=== PATIENT | female | born 1945 | race Caucasian/White ===

== ENCOUNTER 2021-04-14 11:03 | Emergency (ER) | payer MEDICAID, MEDICARE ==
[~2021-04-14] VITALS: Ht 165 cm; Wt 56.0 kg
--- NOTE | 2021-04-14 11:46 | ED Fall/Injury ---
General Chief Complaint: Trauma-Non Activation Stated Complaint: FELL HIT HEAD, BACK PAIN Nursing Triage Note: ARRIVED VIA AMB WITH COMPLAINTS OF LOW BACK PAIN AFTER FALLING DOWN X12 STAIRS SUNDAY NIGHT. STATES SHE HIT HER HEAD ET NO LOC. PT IS NOT ON BLOOD THINNERS. NOTICABLE RIGHT RACOON EYE. Source: patient Exam Limitations: no limitations (SUMAYA BUTCHER APRN) History of Present Illness Date Seen by Provider: Apr 14, 2021 Time Seen by Provider: 11:50 Initial Comments To ER with reports that she fell down 12 stairs on 04/11/2021. No loss of consciousness but she does have some right periorbital bruising. Beginning yesterday she started vomiting but has had poor appetite and nausea for the past 3 days. No diarrhea no abdominal pain. She is not had much to drink. Complains of severe low back pain that does not radiate down either of her legs no loss of bowel or bladder control no numbness of her genitals. She has some bruising to the left forearm as well as pain to left forearm and left shoulder. Occurred: yesterday Severity: moderate Injuries/Pain Location: no injury Loss of Consciousness: no loss of consciousness Associated Symptoms (Fall): Denies Symptoms (SUMAYA BUTCHER APRN) Allergies and Home Medications Allergies Coded Allergies: No Known Drug Allergies (Unverified , 04/14/21) Patient Home Medication List Home Medication List Reviewed: Yes (SUMAYA BUTCHER APRN) Review of Systems Review of Systems Constitutional: see HPI Eyes: No Symptoms Reported Ears, Nose, Mouth, Throat: no symptoms reported Respiratory: no symptoms reported Cardiovascular: no symptoms reported Genitourinary: no symptoms reported Musculoskeletal: see HPI, back pain Skin: no symptoms reported Psychiatric/Neurological: No Symptoms Reported (SUMAYA BUTCHER APRN) Past Whiktms-Frhqpo-Faiwit Hx Patient Social History Tobacco Use?: No Substance use?: No Alcohol Use?: No (SUMAYA BUTCHER APRN) Immunizations Up To Date COVID19 Vaccine Hot Patcher: UNKNKOWN (SUMAYA BUTCHER APRN) Physical Exam Vital Signs Vital Signs - First Documented 04/14/21 11:16 Pulse 81 Resp 16 B/P (MAP) 180/88 (118) Pulse Ox 96 O2 Delivery Room Air (EVETTE REA MD) Vital Signs Capillary Refill : Less Than 3 Seconds (SUMAYA BUTCHER APRN) Height, Weight, BMI Height: '" Weight: lbs. oz. kg; 20.00 BMI Method: General Appearance: WD/WN, no apparent distress HEENT: PERRL/EOMI, normal ENT inspection Neck: non-tender, full range of motion Respiratory: normal breath sounds, no respiratory distress, no accessory muscle use Gastrointestinal: normal bowel sounds, non tender, soft Extremities: normal range of motion, non-tender Neurologic/Psychiatric: alert, normal mood/affect, oriented x 3 Skin: normal color, warm/dry, ecchymosis (Right facial periorbital ecchymosis no evidence of globe injury. Left forearm bruising.) (SUMAYA BUTCHER APRN) [place] Coma Score Best Eye Response: (4) Open Spontaneously Best Verbal Response: (5) Oriented Best Motor Response: (6) Obeys Commands Cedric Total: 15 (SUMAYA BUTCHER APRN) Progress/Results/Core Measures Results/Orders Lab Results Laboratory Tests Test 04/14/21 12:16 04/14/21 13:58 04/14/21 15:09 Range/Units White Blood Count 9.6 4.3-11.0 10^3/uL Red Blood Count 3.97 3.80-5.11 10^6/uL Hemoglobin 11.0 L 11.5-16.0 g/dL Hematocrit 36 35-52 % Mean Corpuscular Volume 90 80-99 fL Mean Corpuscular Hemoglobin 28 25-34 pg Mean Corpuscular Hemoglobin Concent 31 L 32-36 g/dL Red Cell Distribution Width 13.4 10.0-14.5 % Platelet Count 319 130-400 10^3/uL Mean Platelet Volume 9.3 9.0-12.2 fL Immature Granulocyte % (Auto) 0 % Neutrophils (%) (Auto) 82 H 42-75 % Lymphocytes (%) (Auto) 10 L 12-44 % Monocytes (%) (Auto) 8 0-12 % Eosinophils (%) (Auto) 0 0-10 % Basophils (%) (Auto) 1 0-10 % Neutrophils # (Auto) 7.9 H 1.8-7.8 10^3/uL Lymphocytes # (Auto) 0.9 L 1.0-4.0 10^3/uL Monocytes # (Auto) 0.8 0.0-1.0 10^3/uL Eosinophils # (Auto) 0.0 0.0-0.3 10^3/uL Basophils # (Auto) 0.1 0.0-0.1 10^3/uL Immature Granulocyte # (Auto) 0.0 0.0-0.1 10^3/uL Prothrombin Time 13.5 12.2-14.7 SEC INR Comment 1.0 0.8-1.4 Sodium Level 134 L 135-145 MMOL/L Potassium Level 4.7 3.6-5.0 MMOL/L Chloride Level 105 98-107 MMOL/L Carbon Dioxide Level 17 L 21-32 MMOL/L Anion Gap 12 5-14 MMOL/L Blood Urea Nitrogen 20 H 7-18 MG/DL Creatinine 0.87 0.60-1.30 MG/DL Estimat Glomerular Filtration Rate 69 BUN/Creatinine Ratio 23 Glucose Level 92 70-105 MG/DL Calcium Level 9.6 8.5-10.1 MG/DL Corrected Calcium 9.4 8.5-10.1 MG/DL Total Bilirubin 1.2 H 0.1-1.0 MG/DL Aspartate Amino Transf (AST/SGOT) 9 5-34 U/L Alanine Aminotransferase (ALT/SGPT) 14 0-55 U/L Alkaline Phosphatase 109 40-136 U/L Total Protein 8.0 6.4-8.2 GM/DL Albumin 4.2 3.2-4.5 GM/DL Influenza Type A Antigen NEGATIVE NEGATIVE Influenza Type B Antigen NEGATIVE NEGATIVE SARS-CoV-2 RNA (RT-PCR) Not Detected Negative Urine Color YELLOW Urine Clarity CLEAR Urine pH 5.5 5-9 Urine Specific [place] <=1.005 1.016-1.022 Urine Protein NEGATIVE NEGATIVE Urine Glucose (UA) NEGATIVE NEGATIVE Urine Ketones TRACE H NEGATIVE Urine Nitrite NEGATIVE NEGATIVE Urine Bilirubin NEGATIVE NEGATIVE Urine Urobilinogen 0.2 < = 1.0 MG/DL Urine Leukocyte Esterase NEGATIVE NEGATIVE Urine RBC (Auto) 1+ H NEGATIVE Urine RBC 2-5 H /HPF Urine WBC 0-2 /HPF Urine Squamous Epithelial Cells 2-5 /HPF Urine Crystals NONE /LPF Urine Bacteria TRACE /HPF Urine Casts PRESENT /LPF Urine Hyaline Casts RARE /LPF Urine Mucus NEGATIVE /LPF Urine Culture Indicated NO (EVETTE REA MD) Vital Signs/I&O 2/3/22 2/3/22 11:16 15:50 Pulse 81 Resp 16 16 B/P (MAP) 180/88 (118) 160/79 Pulse Ox 96 98 O2 Delivery Room Air Room Air (EVETTE REA MD) Blood Pressure Mean: 118 Departure Communication (Admissions) 1401-Spoke with Dr. Hutton from neurosurgery at [facility] in [place]. Recommends transferring the patient there for MRI and neurosurgical evaluation. I spoke with Dr. Quintero from the emergency room agrees to accept the patient would like a Covid and flu swab before transport. Patient remains hemodynamically stable alert and oriented GCS 15. NAME: DIAZ CHEW [facility] REC#: [id number] PT STATUS: REG ER : 1945 PHYSICIAN: SUMAYA BUTCHER APRN ADMIT DATE: 04/14/21/ER Draft Date of Exam:04/14/21 SHOULDER, LEFT, 3 VIEWS Indication: Fall with left shoulder pain. TIME OF EXAM: 1:06 PM 3 views of the left shoulder were obtained. The glenohumeral and acromioclavicular alignment are normal. Acromial humeral space is normal. No fracture or dislocation is seen. IMPRESSION: No acute bony abnormality is detected. Dictated on workstation # [id number] Dict: 04/14/21 1320 Trans: 04/14/21 1322 [facility] [place] [id number] Interpreted by: DAHIANA CAI MD Electronically signed by: Family Conversation NAME: DIAZ CHEW [facility] REC#: [id number] PT STATUS: REG ER : 1945 PHYSICIAN: SUMAYA BUTCHER APRN ADMIT DATE: 04/14/21/ER Draft Date of Exam:04/14/21 ABDOMEN/KUB 1VIEW EXAM: ABDOMEN/KUB 1VIEW INDICATION: Abnormality seen on hot mill shearer CT. COMPARISON: CT lumbar spine 04/14/2021. FINDINGS: Gaseously distended colon including a loop of colon within a large hiatal hernia. Nonspecific small bowel gas pattern. Lung bases are unremarkable. No free intraperitoneal air is seen. No radiopaque foreign bodies. IMPRESSION: Gaseously distended colon including a large loop within a hiatal hernia. Nonspecific small bowel gas pattern. Dictated on workstation # [id number] Dict: 04/14/21 1319 Trans: 04/14/21 1323 [place] [id number] Interpreted by: YUN CARRINGTON MD Electronically signed by: NAME: DIAZ CHEW [facility] REC#: [id number] PT STATUS: REG ER : 1945 PHYSICIAN: SUMAYA BUTCHER APRN ADMIT DATE: 04/14/21/ER Draft Date of Exam:04/14/21 CT LUMBAR SPINE WO PROCEDURE: CT lumbar spine without contrast. TECHNIQUE: Multiple contiguous axial images were obtained through the lumbar spine without the use of intravenous contrast. Sagittal and coronal reformations were then performed. Auto Exposure Controls were utilized during the CT exam to meet ALARA standards for radiation dose reduction. INDICATION: Back pain after injury from fall COMPARISON: None available. FINDINGS: Osseous demineralization present likely due to osteoporosis. There is an acute 2 column fracture involving superior endplate of T12 which has disruption of the posterior wall and approximately 3 mm of retropulsion of the superior aspect of the posterior wall. This causes mild spinal stenosis. Approximately 20% height loss is present in the T12 vertebral body. The lumbar vertebral bodies are intact. No sacral insufficiency fracture. No high-grade central canal stenosis. No retroperitoneal hematoma. Hiatal hernia is noted but incompletely visualized. IMPRESSION: Acute burst (2 column) fracture of T12 has the posterior wall fragment retropulsed approximately 3 mm resulting in mild spinal stenosis. Dictated on workstation # [id number] Dict: 04/14/21 1306 Trans: 04/14/21 1313 [place] [id number] Interpreted by: EMILIE VAZQUEZ MD Electronically signed by: NAME: DIAZ CHEW [facility] REC#: [id number] PT STATUS: REG ER : 1945 PHYSICIAN: SUMAYA BUTCHER APRN ADMIT DATE: 04/14/21/ER Draft Date of Exam:04/14/21 CT HEAD/CERVICAL SPINE WO PROCEDURE: CT head and CT cervical spine without contrast. TECHNIQUE: Multiple contiguous axial images were obtained through the brain and cervical spine without the use of intravenous contrast. Sagittal and coronal reformations through the cervical spine were then performed. Auto Exposure Controls were utilized during the CT exam to meet ALARA standards for radiation dose reduction. INDICATION: Fall. No prior studies are available for comparison. CT HEAD: There appears to be soft tissue swelling in the right frontal scalp. The ventricles and sulci are within normal limits. No sulcal effacement or midline shift is identified. No acute intra-axial or extra-axial hemorrhage is detected. Cisterns are patent. Visualized paranasal sinuses are clear. IMPRESSION: Right frontal scalp swelling. No acute intracranial process is detected. CT CERVICAL SPINE: Curvature of the cervical spine is normal. There is minimal retrolisthesis of C3 on C4 and C5 on C6. No fractures identified. The prevertebral tissues are within normal limits. Odontoid is intact. There is some generalized degenerative disc and facet disease. IMPRESSION: No acute bony abnormality is detected. Dictated on workstation # [id number] Dict: 04/14/21 1304 Trans: 04/14/21 1309 [facility] [place] [phone] Interpreted by: DAHIANA CAI MD Electronically signed by: (SUMAYA BUTCHER APRN) Impression Primary Impression: T12 burst fracture Additional Impression: Colon distention Disposition: XFER SHT-TRM HOSP Condition: Stable Transfer Transfer Reason: Exceeds level of care Time Spoke to Accepting Phy: 14:22 (SUMAYA BUTCHER APRN) Departure-Patient Inst. [place] [facility] [place] Primary Care Physician ELEANOR ALDRICH DO (Family) Primary Care Physician ATTENDING PHYSICIAN NOTE: I was physically present as attending physician in the emergency department during the care of this patient. I discussed this case in brief with Sumaya Butcher NP and reviewed x-rays with him. I agree with transfer to higher level of care. Dr. Greer as trauma surgeon on-call was notified of transfer and agrees. I was otherwise not directly involved in the decision making or delivery of care for this patient. (EVETTE REA MD) SUMAYA BUTCHER APRN Apr 14, 2021 11:46 EVETTE REA MD Apr 16, 2021 06:41
[2021-04-14 12:25] LABS: BASOPHILS # (AUTO) 0.1 10^3/uL (0.0-0.1); BASOPHILS % (AUTO) 1 % (0-10); EOSINOPHILS % (AUTO) 0 % (0-10); HEMATOCRIT 36 % (35-52); LYMPHOCYTES # (AUTO) 0.9 10^3/uL (1.0-4.0); LYMPHOCYTES % (AUTO) 10 % (12-44); MEAN CORPUSCULAR HEMOGLOBIN 28 pg (25-34); MEAN CORPUSCULAR HGB CONC 31 g/dL (32-36); MEAN CORPUSCULAR VOLUME 90 fL (80-99); MEAN PLATELET VOLUME 9.3 fL (9.0-12.2); MONOCYTES # (AUTO) 0.8 10^3/uL (0.0-1.0); MONOCYTES % (AUTO) 8 % (0-12); NEUTROPHILS # (AUTO) 7.9 10^3/uL (1.8-7.8); NEUTROPHILS % (AUTO) 82 % (42-75); PLATELET COUNT 319 10^3/uL (130-400); WHITE BLOOD COUNT 9.6 10^3/uL (4.3-11.0)
[2021-04-14] MEDS ORDERED: ONDANSETRON 4 MG/2 ML (SDV) Z0FRAN IVP ONE (12:30)
[2021-04-14] MEDS ORDERED: fentaNYL INJ 100 MCG/2 ML AMP IVP ONE ×3 (12:30→15:45)
[2021-04-14] MEDS ORDERED: LACTATED RINGERS 1,000 ML IV SCH (12:30)
[2021-04-14 12:34] LABS: ALBUMIN 4.2 GM/DL (3.2-4.5); POTASSIUM 4.7 MMOL/L (3.6-5.0)
[2021-04-14 12:35] LABS: CALCIUM 9.6 MG/DL (8.5-10.1); PROTHROMBIN TIME PATIENT 13.5 SEC (12.2-14.7)
[2021-04-14 12:38] LABS: BILIRUBIN,TOTAL 1.2 MG/DL (0.1-1.0)
[2021-04-14 12:40] LABS: CREATININE SERUM 0.87 MG/DL (0.60-1.30)
--- NOTE | 2021-04-14 13:10 | Diagnostic Imaging Report ---
PROCEDURE: CT head and CT cervical spine without contrast. TECHNIQUE: Multiple contiguous axial images were obtained through the brain and cervical spine without the use of intravenous contrast. Sagittal and coronal reformations through the cervical spine were then performed. Auto Exposure Controls were utilized during the CT exam to meet ALARA standards for radiation dose reduction. INDICATION: Fall. No prior studies are available for comparison. CT HEAD: There appears to be soft tissue swelling in the right frontal scalp. The ventricles and sulci are within normal limits. No sulcal effacement or midline shift is identified. No acute intra-axial or extra-axial hemorrhage is detected. Cisterns are patent. Visualized paranasal sinuses are clear. IMPRESSION: Right frontal scalp swelling. No acute intracranial process is detected. CT CERVICAL SPINE: Curvature of the cervical spine is normal. There is minimal retrolisthesis of C3 on C4 and C5 on C6. No fractures identified. The prevertebral tissues are within normal limits. Odontoid is intact. There is some generalized degenerative disc and facet disease. IMPRESSION: No acute bony abnormality is detected. Dictated by: Dictated on workstation # [id number]
--- NOTE | 2021-04-14 13:13 | Diagnostic Imaging Report ---
PROCEDURE: CT lumbar spine without contrast. TECHNIQUE: Multiple contiguous axial images were obtained through the lumbar spine without the use of intravenous contrast. Sagittal and coronal reformations were then performed. Auto Exposure Controls were utilized during the CT exam to meet ALARA standards for radiation dose reduction. INDICATION: Back pain after injury from fall COMPARISON: None available. FINDINGS: Osseous demineralization present likely due to osteoporosis. There is an acute 2 column fracture involving superior endplate of T12 which has disruption of the posterior wall and approximately 3 mm of retropulsion of the superior aspect of the posterior wall. This causes mild spinal stenosis. Approximately 20% height loss is present in the T12 vertebral body. The lumbar vertebral bodies are intact. No sacral insufficiency fracture. No high-grade central canal stenosis. No retroperitoneal hematoma. Hiatal hernia is noted but incompletely visualized. IMPRESSION: Acute burst (2 column) fracture of T12 has the posterior wall fragment retropulsed approximately 3 mm resulting in mild spinal stenosis. Dictated by: Dictated on workstation # [id number]
--- NOTE | 2021-04-14 13:22 | Diagnostic Imaging Report ---
Indication: Fall with left shoulder pain. TIME OF EXAM: 1:06 PM 3 views of the left shoulder were obtained. The glenohumeral and acromioclavicular alignment are normal. Acromial humeral space is normal. No fracture or dislocation is seen. IMPRESSION: No acute bony abnormality is detected. Dictated by: Dictated on workstation # [id number]
--- NOTE | 2021-04-14 13:23 | Diagnostic Imaging Report ---
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 COMPARISON: CT lumbar spine 04/14/2021. FINDINGS: Gaseously distended colon including a loop of colon within a large hiatal hernia. Nonspecific small bowel gas pattern. Lung bases are unremarkable. No free intraperitoneal air is seen. No radiopaque foreign bodies. IMPRESSION: Gaseously distended colon including a large loop within a hiatal hernia. Nonspecific small bowel gas pattern. Dictated by: Dictated on workstation # [id number]
--- NOTE | 2021-04-14 13:24 | Diagnostic Imaging Report ---
INDICATION: Fall and left arm pain. TIME OF EXAM: 12:59 PM 2 views left forearm were obtained. Alignment at the elbow and wrist is normal. The radius and ulna appear to be intact. No fractures are seen. IMPRESSION: No acute bony abnormality is detected. Dictated by: Dictated on workstation # [id number]
[2021-04-14] MEDS ORDERED: IOHEXOL 350 MG/ML 100 ML (OMNIPAQUE 350) VIAL IV ONE (13:30)
[2021-04-14] MEDS ORDERED: NS 100 ML (IVPB) BAG IV ONE (13:30)
[2021-04-14] MEDS ORDERED: CATHETER FLUSH 10 ML SYR IV PRN (13:30)
[2021-04-14] MEDS ORDERED: HOLD METFORMIN - RECEIVED CONTRAST 20 ML VIAL IV SCH (13:30)
--- NOTE | 2021-04-14 14:15 | Diagnostic Imaging Report ---
PROCEDURE: CT chest, abdomen, and pelvis with contrast. TECHNIQUE: Multiple contiguous axial images were obtained through the chest, abdomen, and pelvis after the administration of intravenous contrast. Auto Exposure Controls were utilized during the CT exam to meet ALARA standards for radiation dose reduction. INDICATION: Hiatal hernia and back pain CT CHEST: There is a large hiatal hernia containing almost the entirety of the stomach as well as segment of dilated gas and stool containing transverse colon. There is mild subjacent atelectasis in the lung bases. Otherwise, the lungs are clear without significant pleural or pericardial fluid. There is no pneumothorax or pneumomediastinum. Great vessels in the mediastinum are of normal caliber with densely calcified coronary artery calcification. CT ABDOMEN PELVIS: No focal hepatic, gallbladder, pancreatic, adrenal gland or splenic lesions identified. Kidneys are also unremarkable. Stomach and portions of transverse colon are above the diaphragm in the posterior mediastinum. There is large amount of stool in the proximal colon with general decompression of the distal colon beyond distal transverse segment. Unopacified bladder is unremarkable. There is no evidence of organized fluid collection or focal inflammation. There is mild diffuse thoracic and lumbar spondylosis. Note is made of mild compression fracture deformity at the T12 level. IMPRESSION: Giant hiatal hernia containing stomach and dilated transverse colon. There does appear to be significant distention of colon proximal to the herniation and a component of obstruction possibly secondary to colonic volvulus is not fully excluded. Colonoscopy or contrast enema may be of use for further assessment. Otherwise no acute abnormality is seen in the chest apart from mild compression fracture at T12. Correlation to possible pain at this region would be useful. MRI could be considered to exclude acute nature. Dictated by: Dictated on workstation # [id number]
[2021-04-14 15:16] LABS: BILIRUBIN,URINE NEGATIVE (NEGATIVE); CLARITY,URINE CLEAR; COLOR,URINE YELLOW; GLUCOSE, URINE (UA) NEGATIVE (NEGATIVE); KETONES,URINE TRACE (NEGATIVE); LEUKOCYTE ESTERASE ,URINE NEGATIVE (NEGATIVE); NITRITE,URINE NEGATIVE (NEGATIVE); PH,URINE 5.5 (5-9); PROTEIN,URINE NEGATIVE (NEGATIVE)
[2021-04-14 15:24] LABS: BACTERIA,URINE TRACE /HPF; HYALINE CASTS, URINE RARE /LPF; WBC,URINE 0-2 /HPF
[2021-04-14] MEDS ORDERED: fentaNYL INJ 100 MCG/2 ML AMP ONE (15:45)
[2021-04-14 15:50] VITALS: BP 160/79
== END 2021-04-14 15:50 | disposition short-term general hospital (02) ==
LOC: EDUNIT# 11:03 → ER 11:05
DX: S22.081A Stable burst fracture of T11-T12 vertebra, initial encounter for closed fracture (principal); S50.12XA Contusion of left forearm, initial encounter; S05.11XA Contusion of eyeball and orbital tissues, right eye, initial encounter; K63.89 Other specified diseases of intestine; Z20.822 Contact with and (suspected) exposure to COVID-19; W10.8XXA Fall (on) (from) other stairs and steps, initial encounter
CPT/HCPCS: 36415; 70450; 71260; 72125; 72131; 73030; 73090; 74018; 74177; 80053; 81000; 85025; 85610; 87636; 87804

== ENCOUNTER → 2021-07-15 | Outpatient (CLI) | payer MEDICARE ==
[~2021-07-15] MED LIST: LIDOCAINE 1% INJ 20 ML VIAL INJ ONE
--- NOTE | 2021-07-15 16:22 | Diagnostic Imaging Report ---
INDICATION: Right breast density. Patient presents for stereotactic biopsy. COMPARISON: Correlation is made with recent study from 07/11/2021. EXAMINATION: Exaggerated CC as well as repeat MLO and lateral medial views of the right breast were obtained. FINDINGS: There is a density in the outer right breast posterior depth. This is near the chest wall approximately 10 cm from the nipple. Attempts were made to position the right breast lateral medial in order for patient to undergo stereotactic biopsy, however, this was unsuccessful. The lesion could not be confidently identified for targeting. Therefore, procedure was canceled. IMPRESSION: Right breast lesion could not be successfully seen and targeted for stereotactic biopsy. Patient should proceed with breast MRI with potential MRI-guided right breast biopsy. Dictated by: Dictated on workstation # [id number]
== END ==
LOC: RAD 10:07
PROVIDERS: ATTEND Pediatrics
DX: R92.2 Inconclusive mammogram (principal)
CPT/HCPCS: 77065; G0279

== ENCOUNTER → 2022-03-28 | Outpatient (CLI) | payer MEDICARE ==
--- NOTE | 2022-03-28 13:08 | Diagnostic Imaging Report ---
INDICATION: Postmenopausal screening for osteoporosis. COMPARISON: None. FINDINGS: AP Spine L1-L4: [BMD (g/cm2): 0.956] [T-Score: -2.0] [Z-Score: 0.2] [BMD Previous: NA] [BMD % Change: NA] LT Hip Neck: [BMD (g/cm2): 0.659] [T-Score: -2.7] [Z-Score: -0.4] LT Hip Total: [BMD (g/cm2):0.620] [T-Score:-3.1] [Z-Score: -0.9] [BMD Previous: NA] [BMD % Change: NA] RT Hip Neck: [BMD (g/cm2):0.653] [T-Score:-2.8] [Z-Score:-0.5] RT Hip Total: [BMD (g/cm2):0.595] [T-score:-3.3] [Z-Score:-1.1] [BMD Previous:NA] [BMD % Change:NA] *Indicates significant change from prior examination based on 95% confidence level. World Health Organization criteria for BMD interpretation classify patients as Normal (T-score at or above -1.0), Osteopenic (T-score between -1.0 and -2.5) or Osteoporotic (T-score at or below -2.5). LIMITATIONS AND MODIFICATION: None. FRACTURE RISK (FRAX SCORE): The ten year probability of (%): Major Osteoporotic Fracture: [25.2] Hip Fracture: [9.5] IMPRESSION: 1. Osteoporosis. 2. Baseline examination. 3. See below National Osteoporosis Foundation guidelines on when to potentially initiate pharmacologic therapy. Based on the National Osteoporosis Foundation Guidelines, pharmacologic treatment should be initiated in any of the following, unless clinical conditions suggest otherwise: * Any patient with prior fragility fracture of the hip or vertebrae. A spine fracture indicates 5X risk for subsequent spine fracture and 2X risk for subsequent hip fracture. * Osteoporosis (T-score <-2.5). * Postmenopausal women and men age 50 and older with low bone mass/osteopenia (T-score between -1.0 and -2.5) by DXA and 10-year major osteoporotic fracture greater than 20% or a 10-year probability of hip fracture greater than 3%. These fracture risks are supplied above in the FRAX score, if applicable. * Clinician judgement and/or patient preferences may indicate treatment for people with 10-year fracture probabilities above or below these levels. Dictated by: Dictated on workstation # [id number]
== END ==
LOC: RAD 11:29
PROVIDERS: ATTEND Pediatrics
DX: Z13.820 Encounter for screening for osteoporosis (principal); M81.0 Age-related osteoporosis without current pathological fracture; Z78.0 Asymptomatic menopausal state
CPT/HCPCS: 77080

== ENCOUNTER 2022-05-17 13:03 | Observation (INO) | payer MEDICARE ==
[~2022-05-17] VITALS: Ht 165.1 cm; Wt 52.2 kg
[2022-05-17] MEDS ORDERED: ASPIRIN 81 MG CHEW (CHILDREN'S ASA) PO ONE (13:15)
[2022-05-17] MEDS ORDERED: NITROGLYCERIN 0.4 MG SL TABS BTL 25'S SL PRN ×2 (13:15→16:00)
--- NOTE | 2022-05-17 13:19 | ED Chest Pain ---
General Chief Complaint: Chest Pain Stated Complaint: CHEST PAINS Source: patient Exam Limitations: no limitations History of Present Illness Date Seen by Provider: May 17, 2022 Time Seen by Provider: 13:17 Initial Comments Patient is a 77-year-old female with a history of hypertension, high cholesterol who presents to ED with left-sided chest pain. Pain started 45 minutes to 1 hour ago. She was laying at home. Sharp stabbing pain overlying her left breast. No radiation. Worse with deep inspiration. Rates pain at a 10. Denies history similar pain. She has some mild shortness of breath without nausea, vomiting, diarrhea, cough, headache or dizziness. No known cardiac history. Strong family cardiac history. Denies history of diabetes, smoking, history of coronary artery disease, recent travels or surgeries, blood disorders, leg pain, recent travels or surgeries. She also denies fever, abdominal pain or urinary symptoms. Patient took 1 baby aspirin right before arrival Allergies and Home Medications Allergies Coded Allergies: No Known Drug Allergies (Unverified , 04/14/21) Patient Home Medication List Home Medication List Reviewed: Yes Review of Systems Review of Systems Constitutional: No chills, No diaphoresis, No malaise, No weakness EENTM: No Double Vision Respiratory: Denies Cough; Shortness of Air; Denies SOA at Rest Cardiovascular: Chest Pain Gastrointestinal: Denies Abdominal Pain, Denies Diarrhea, Denies Nausea, Denies Vomiting Genitourinary: Denies Burning, Denies Drainage, Denies Frequency Musculoskeletal: No back pain, No joint pain Skin: No change in color, No change in hair/nails All Other Systems Reviewed Negative Unless Noted: Yes Past Lhmenkw-Ocvudm-Gbmkty Hx Patient Social History Tobacco Use?: No Use of E-Cig and/or Vaping dev: No Alcohol Use?: No Pt feels they are or have been: No Immunizations Up To Date Influenza Vaccine Up-to-Date: Yes; Up-to-Date First/Initial COVID19 Vaccinat: 11/30 Second COVID19 Vaccination Steve: X3 Third COVID19 Vaccination Date: X3 Past Medical History Surgery/Hospitalization HX: HTN. HLD Physical Exam Vital Signs Vital Signs - First Documented 05/17/22 13:07 Temp 36.4 Pulse 85 Resp 18 B/P (MAP) 183/94 (123) Capillary Refill : Height, Weight, BMI Height: '" Weight: lbs. oz. kg; 20.00 BMI Method: General Appearance: No Apparent Distress, WD/WN HEENT: PERRL/EOMI, TMs Normal, Normal ENT Inspection, Pharynx Normal Neck: Full Range of Motion, Normal Inspection, Non Tender, Supple Respiratory: Chest Non Tender, Lungs Clear, Normal Breath Sounds, No Accessory Muscle Use, No Respiratory Distress Cardiovascular: Regular Rate, Rhythm, No Edema, No Gallop Gastrointestinal: Normal Bowel Sounds, No Organomegaly, No Pulsatile Mass, Non Tender Neurologic/Psychiatric: Alert, Oriented x3, No Motor/Sensory Deficits, Normal Mood/Affect Skin: Normal Color Progress/Results/Core Measures Results/Orders Lab Results Laboratory Tests Test 05/17/22 13:16 Range/Units White Blood Count 8.1 4.3-11.0 10^3/uL Red Blood Count 3.96 3.80-5.11 10^6/uL Hemoglobin 10.6 L 11.5-16.0 g/dL Hematocrit 33 L 35-52 % Mean Corpuscular Volume 84 80-99 fL Mean Corpuscular Hemoglobin 27 25-34 pg Mean Corpuscular Hemoglobin Concent 32 32-36 g/dL Red Cell Distribution Width 15.2 H 10.0-14.5 % Platelet Count 366 130-400 10^3/uL Mean Platelet Volume 8.9 L 9.0-12.2 fL Immature Granulocyte % (Auto) 0 % Neutrophils (%) (Auto) 70 42-75 % Lymphocytes (%) (Auto) 19 12-44 % Monocytes (%) (Auto) 10 0-12 % Eosinophils (%) (Auto) 1 0-10 % Basophils (%) (Auto) 1 0-10 % Neutrophils # (Auto) 5.6 1.8-7.8 10^3/uL Lymphocytes # (Auto) 1.6 1.0-4.0 10^3/uL Monocytes # (Auto) 0.8 0.0-1.0 10^3/uL Eosinophils # (Auto) 0.1 0.0-0.3 10^3/uL Basophils # (Auto) 0.1 0.0-0.1 10^3/uL Immature Granulocyte # (Auto) 0.0 0.0-0.1 10^3/uL Prothrombin Time 13.7 12.2-14.7 SEC INR Comment 1.0 0.8-1.4 Activated Partial Thromboplast Time 35 24-35 SEC D-Dimer <= 0.27 0.00-0.49 UG/ML Sodium Level 140 135-145 MMOL/L Potassium Level 3.9 3.6-5.0 MMOL/L Chloride Level 112 H 98-107 MMOL/L Carbon Dioxide Level 21 21-32 MMOL/L Anion Gap 7 5-14 MMOL/L Blood Urea Nitrogen 23 H 7-18 MG/DL Creatinine 1.03 0.60-1.30 MG/DL Estimat Glomerular Filtration Rate 56 BUN/Creatinine Ratio 22 Glucose Level 63 L 70-105 MG/DL Calcium Level 9.2 8.5-10.1 MG/DL Corrected Calcium 9.2 8.5-10.1 MG/DL Magnesium Level 1.7 1.6-2.4 MG/DL Total Bilirubin 0.4 0.1-1.0 MG/DL Aspartate Amino Transf (AST/SGOT) 10 5-34 U/L Alanine Aminotransferase (ALT/SGPT) 13 0-55 U/L Alkaline Phosphatase 98 40-136 U/L Myoglobin 51.2 10.0-92.0 NG/ML Troponin I < 0.028 <0.028 NG/ML B-Type Natriuretic Peptide 114.9 H <100.0 PG/ML Total Protein 7.9 6.4-8.2 GM/DL Albumin 4.0 3.2-4.5 GM/DL Lipase 50 8-78 U/L My Orders Orders - LUPE BECK PA Ekg Tracing (05/17/22 13:06) Cbc With Automated Diff (05/17/22 13:15) Magnesium (05/17/22 13:15) Chest 1 View, Ap/Pa Only (05/17/22 13:15) Ekg Tracing (05/17/22 13:15) Comprehensive Metabolic Panel (05/17/22 13:15) Myoglobin Serum (05/17/22 13:15) Protime With Inr (05/17/22 13:15) Partial Thromboplastin Time (05/17/22 13:15) O2 (05/17/22 13:15) Monitor-Rhythm Ecg Trace Only (05/17/22 13:15) Ed Iv/Invasive Line Start (05/17/22 13:15) Lipase (05/17/22 13:15) Bnp [place] (05/17/22 13:15) Troponin I Michael (05/17/22 13:15) Nitroglycerin 0.4 Mg Btl 25's (Nitrostat (05/17/22 13:15) Aspirin Chewable Tablet (Baby Aspirin Ch (05/17/22 13:15) Fibrin Degradation Products (05/17/22 13:15) Morphine Injection (Morphine Injection (05/17/22 13:47) Metoprolol Succinate (Xl) Tab (Toprol Xl (05/17/22 14:45) Pantoprazole Injection (Protonix Injecti (05/17/22 14:45) Medications Given in ED Current Medications Medications Dose Ordered Sig/Jarrod Route Start Time Stop Time Status Last Admin Dose Admin Aspirin 243 mg ONCE ONCE PO 05/17/22 13:15 05/17/22 13:17 DC 05/17/22 13:20 243 MG Nitroglycerin 0.4 mg UD PRN SL 05/17/22 13:15 05/17/22 13:20 0.4 MG Vital Signs/I&O 05/17/22 13:07 Temp 36.4 Pulse 85 Resp 18 B/P (MAP) 183/94 (123) Comment Sinus rhythm with very minimal ST depression lateral leads, minimal ST elevation inferior leads, 81 bpm, QRS duration 85 MS, QTc 422 MS. Departure Communication (Admissions) Time/Spoke to Admitting Phy: 14:35 Dr. Garcia cardiology recommends metoprolol succinate 50 mg p.o. daily, aspirin 81 mg daily, morphine 2 mg every 2-4 hours as needed for pain, Protonix 40 mg daily, cardiac diet. Communication (PCP) Reviewed previous ER visits, outpatient visits, lab test and imaging. Patient has had no previous cardiac work-up. Initial EKG showed sinus rhythm at 81 bpm with very minimal ST elevation in inferior leads. Patient took 81 mg aspirin at home. She was given 3 baby aspirin to equal a full aspirin here. She was initially given sublingual nitro 0.4 mg and a dose of 2 mg of morphine with near resolution of her pain. Differential diagnosis of acute coronary syndrome, pericarditis, gastritis, GERD, pneumonia, CHF. Heart score 4. Due to her current presentation cardiac work-up was ordered CBC, CMP, lipase, magnesium, troponin, BNP, D-dimer, and coags, chest x-ray Patient CBC was unremarkable, CMP was otherwise unremarkable besides a blood sugar 63. BNP 114 likely unremarkable. Normal troponin. Initial review of chest x-ray shows large hiatal hernia which she is aware of but otherwise unremarkable without evidence of pleural effusion, pneumonia. Cardiology Dr. Garcia was consulted. Recommends 81 mg aspirin daily, metoprolol succinate 50 mg p.o., cardiac diet, morphine 2 mg as needed for pain, Protonix 40 mg daily, patient is not n.p.o. after midnight. Patient was discussed with Dr. Montiel hospitalist regarding patient. Excepted for cardiac work-up, serial troponins. She will provide acute orders. Patient agrees for admission at this time. No previous cardiac work-up to compare to Impression Primary Impression: Chest pain Disposition: ADMITTED INPATIENT Condition: Stable Admissions Decision to Admit Reason: Admit from ER (General) Decision to Admit/Date: May 17, 2022 Time/Decision to Admit Time: 14:43 Departure-Patient Inst. Referrals: [facility] (PCP) Primary Care Physician ELEANOR ALDRICH DO (Family) Primary Care Physician LUPE BECK May 17, 2022 13:19
[2022-05-17 13:23] LABS: BASOPHILS # (AUTO) 0.1 10^3/uL (0.0-0.1); BASOPHILS % (AUTO) 1 % (0-10); EOSINOPHILS # (AUTO) 0.1 10^3/uL (0.0-0.3); EOSINOPHILS % (AUTO) 1 % (0-10); HEMATOCRIT 33 % (35-52); HEMOGLOBIN 10.6 g/dL (11.5-16.0); LYMPHOCYTES # (AUTO) 1.6 10^3/uL (1.0-4.0); LYMPHOCYTES % (AUTO) 19 % (12-44); MEAN CORPUSCULAR HEMOGLOBIN 27 pg (25-34); MEAN CORPUSCULAR HGB CONC 32 g/dL (32-36); MEAN CORPUSCULAR VOLUME 84 fL (80-99); MEAN PLATELET VOLUME 8.9 fL (9.0-12.2); MONOCYTES # (AUTO) 0.8 10^3/uL (0.0-1.0); MONOCYTES % (AUTO) 10 % (0-12); NEUTROPHILS # (AUTO) 5.6 10^3/uL (1.8-7.8); NEUTROPHILS % (AUTO) 70 % (42-75); PLATELET COUNT 366 10^3/uL (130-400); WHITE BLOOD COUNT 8.1 10^3/uL (4.3-11.0)
[2022-05-17 13:35] LABS: POTASSIUM 3.9 MMOL/L (3.6-5.0)
[2022-05-17 13:36] LABS: CALCIUM 9.2 MG/DL (8.5-10.1); PROTHROMBIN TIME PATIENT 13.7 SEC (12.2-14.7)
[2022-05-17 13:38] LABS: TOTAL PROTEIN 7.9 GM/DL (6.4-8.2)
[2022-05-17 13:39] LABS: BILIRUBIN,TOTAL 0.4 MG/DL (0.1-1.0)
[2022-05-17 13:41] LABS: CREATININE SERUM 1.03 MG/DL (0.60-1.30)
[2022-05-17 13:44] LABS: MAGNESIUM 1.7 MG/DL (1.6-2.4)
[2022-05-17] MEDS ORDERED: morphine INJ 10 MG/ML 1ML (SYR OR VIAL) IV STA (13:47)
--- NOTE | 2022-05-17 14:14 | Diagnostic Imaging Report ---
INDICATION: Chest pain Frontal chest obtained at 1:36 p.m. There is no prior study for comparison. Heart is normal in size. There is a large hiatal hernia. There is no focal infiltrate or pneumothorax or pleural fluid. IMPRESSION: Large hiatal hernia. No focal infiltrate or pneumothorax or pleural fluid. Dictated by: Dictated on workstation # [id number]
[2022-05-17] MEDS ORDERED: meTOproloL SUCCINATE 50 MG (TOPROL XL) TAB PO SCH (14:45)
[2022-05-17] MEDS ORDERED: PANTOPRAZOLE 40 MG (PROTONIX) VIAL IV ONE (14:45)
--- NOTE | 2022-05-17 15:27 | Consultation-Cardiology ---
HPI-Cardiology Cardiology Consultation: Date of Consultation 05/17/22 Time Seen by a Provider: 14:45 Date of Admission 05-17-22 Attending Physician [facility] Admitting Physician Admitting Physician: Attending Physician: Consulting Physician KAMINI DANIELS HPI: Chief Complaint: Chest pain Ms. Chew is a 77 yr old female whom I have seen in the ED. She reports she is under increased stress d/t her son being critically ill and in our ICU at this time. She reports she laid down to take a nap and woke up with localized sharp stabbing pain under her left breast. She reports it was constant and significantly worse with deep breathing. She reports some increase the discomfort with movement. She states her family member drove her to the ED and by the time she arrived at the ED the pain had improved, but had not resolved. She currently reports she continues to have mild chest discomfort at rest. During her assessment when auscultating breath sounds she did report discomfort with deep breathing. She reports h/o breast cancer with left sided mastectomy and breast reconstruction over 10 yrs ago. She reports occ palpitations, which she describes as a skipped beat lasting only a few seconds. She reports if she turns her head to quickly she has dizziness, but reports that has been present since her back surgery last year. No c/o syncope or near syncope. No c/o LE swelling. No c/o n/v/d. No c/o fever or chills. Review of Systems-Cardiology Review of Systems Constitutional: As described under HPI; No chills, No fever; tiredness Eyes: No vision change Ears/Nose/Throat: No epistaxis, No recent hearing loss Respiratory: As described under HPI Cardiovascular: As described under HPI Gastrointestinal: No constipation, No diarrhea, No nausea, No vomiting Genitourinary: No dysuria, No hematuria Musculoskeletal: back pain Skin: No rash on exposed areas, No ulcerations on exposed areas Psychiatric/Neurological: No anxiety, No depression, No seizure, No focal weakness, No syncope Hematologic: No bleeding abnormalities All Other Systems Reviewed Negative Unless Noted: Yes YCG-Brtwkf-Kgocxd Hx Patient Social History Have you traveled recently?: No Alcohol Use?: No Pt feels they are or have been: No Past Medical History PMH As described under Assessment. Family Medical History Family Medical History: Cecilio reports her father passed from an [place] at age 45. She reports her mother and father both had heart disease. Allergies and Home Medications Allergies Coded Allergies: No Known Drug Allergies (Unverified , 04/14/21) Physical Exam-Cardiology Physical Exam Vital Signs/I&O 05/18/22 05/18/22 05/18/22 05/18/22 00:22 01:00 03:49 07:00 Temp 36.6 Pulse 73 60 66 70 Resp 20 18 B/P (MAP) 157/79 (105) 142/77 (98) Pulse Ox 100 97 O2 Delivery Room Air Room Air 05/18/22 08:00 Pulse Ox 97 O2 Delivery Room Air 05/18/22 00:00 Intake Total 550 ml Balance 550 ml Capillary Refill : Constitutional: AAO x 3, well-developed, other (thin) HEENT: PERRL, hearing is well preserved, oral hygience is good Neck: No carotid bruit; carotid pulses are 2 + bilaterally Respiratory: No accessory muscle use, No respiratory distress; chest expansion is symmetric, chest is bilaterally symmetric, lungs clear to auscultation Cardiovascular: regular rate-rhythm; No JVD; S1 and S2 Gastrointestinal: No tender; soft; No guarding; audible bowel sounds Extremities: no lower extremity edema bilateral Neurologic/Psychiatric: grossly intact (moves all extremities) Skin: No rash on exposed areas, No ulcerations on exposed areas Data Review Labs Laboratory Tests 05/17/22 13:16: White Blood Count 8.1, Red Blood Count 3.96, Hemoglobin 10.6L, Hematocrit 33L, Mean Corpuscular Volume 84, Mean Corpuscular Hemoglobin 27, Mean Corpuscular Hemoglobin Concent 32, Red Cell Distribution Width 15.2H, Platelet Count 366, Mean Platelet Volume 8.9L, Immature Granulocyte % (Auto) 0, Neutrophils (%) (Auto) 70, Lymphocytes (%) (Auto) 19, Monocytes (%) (Auto) 10, Eosinophils (%) (Auto) 1, Basophils (%) (Auto) 1, Neutrophils # (Auto) 5.6, Lymphocytes # (Auto) 1.6, Monocytes # (Auto) 0.8, Eosinophils # (Auto) 0.1, Basophils # (Auto) 0.1, Immature Granulocyte # (Auto) 0.0, Prothrombin Time 13.7, INR Comment 1.0, Activated Partial Thromboplast Time 35, D-Dimer <= 0.27, Sodium Level 140, Potassium Level 3.9, Chloride Level 112H, Carbon Dioxide Level 21, Anion Gap 7, Blood Urea Nitrogen 23H, Creatinine 1.03, Estimat Glomerular Filtration Rate 56, BUN/Creatinine Ratio 22, Glucose Level 63L, Calcium Level 9.2, Corrected Calcium 9.2, Magnesium Level 1.7, Total Bilirubin 0.4, Aspartate Amino Transf (AST/SGOT) 10, Alanine Aminotransferase (ALT/SGPT) 13, Alkaline Phosphatase 98, Myoglobin 51.2, Troponin I < 0.028, B-Type Natriuretic Peptide 114.9H, Total Protein 7.9, Albumin 4.0, Lipase 50 05/18/22 04:32: White Blood Count 6.8, Red Blood Count 3.92, Hemoglobin 10.5L, Hematocrit 32L, Mean Corpuscular Volume 83, Mean Corpuscular Hemoglobin 27, Mean Corpuscular Hemoglobin Concent 32, Red Cell Distribution Width 15.4H, Platelet Count 342, Mean Platelet Volume 9.6, Immature Granulocyte % (Auto) 0, Neutrophils (%) (Auto) 77H, Lymphocytes (%) (Auto) 14, Monocytes (%) (Auto) 9, Eosinophils (%) (Auto) 0, Basophils (%) (Auto) 0, Neutrophils # (Auto) 5.2, Lymphocytes # (Auto) 0.9L, Monocytes # (Auto) 0.6, Eosinophils # (Auto) 0.0, Basophils # (Auto) 0.0, Immature Granulocyte # (Auto) 0.0, Sodium Level 136, Potassium Level 4.4, Chloride Level 109H, Carbon Dioxide Level 19L, Anion Gap 8, Blood Urea Nitrogen 19H, Creatinine 0.96, Estimat Glomerular Filtration Rate 61, BUN/Creatinine Ratio 20, Glucose Level 94, Calcium Level 9.4, Corrected Calcium 9.7, Total Bilirubin 0.6, Aspartate Amino Transf (AST/SGOT) 8, Alanine Aminotransferase (ALT/SGPT) 10, Alkaline Phosphatase 79, Troponin I < 0.028, Total Protein 7.1, Albumin 3.6 Radiology NAME: DIAZ CHEW [facility] REC#: [id number] PT STATUS: REG ER : 1945 PHYSICIAN: LUPE BECK ADMIT DATE: 05/17/22/ER Signed Date of Exam:05/17/22 CHEST 1 VIEW, AP/PA ONLY INDICATION: Chest pain Frontal chest obtained at 1:36 p.m. There is no prior study for comparison. Heart is normal in size. There is a large hiatal hernia. There is no focal infiltrate or pneumothorax or pleural fluid. IMPRESSION: Large hiatal hernia. No focal infiltrate or pneumothorax or pleural fluid. Dictated by: Dictated on workstation # [id number] Dict: 05/17/22 1409 Trans: 05/17/22 1450 CVB [id number] Interpreted by: ARELY SHORT MD Electronically signed by: ARELY SHORT MD 05/17/22 1450 ECG Impression ECG Initial ECG Rhythm: Normal Sinus A/P-Cardiology Assessment/Admission Diagnosis Chest pain - undetermined etiology HTN HLD H/O masectomy d/t breast cancer with breast reconstruction greater than 10 yrs ago H/O back fusion a year ago Discussion and Recomendations Chest pain - undetermined etiology - no evidence of ACS thus far - echocardiogram to eval structure and function Continue home antihypertensive regimen Continue home hyperlipidemia regimen Monitor lab Replace electrolytes as indicated Further recs will be based on her hospital course We would like to thank medical services for this consult Clinical Quality Measures AMI/AHF: ASA po Prior to arrival: Yes (81) KAMINI CONTRERAS May 17, 2022 15:27
[2022-05-17 16:00] VITALS: BP 164/84
[2022-05-17] MEDS ORDERED: ANTACID SUSP 30 ML UDC (MYLANTA) PO PRN (16:00)
[2022-05-17] MEDS ORDERED: MILK OF MAGNESIA 400 MG/5 ML 30 ML UDC PO PRN (16:00)
[2022-05-17] MEDS ORDERED: diphenhydrAMINE 25 MG TAB (BENADRYL) PO PRN (16:00)
[2022-05-17] MEDS ORDERED: BISACODYL 10 MG SUPP (DULCOLAX) PR PRN (16:00)
[2022-05-17] MEDS ORDERED: polyethylene glycoL POWDER 17 GM (MIRALAX) PACK PO PRN (16:00)
[2022-05-17] MEDS ORDERED: cloNIDine 0.1 MG (CATAPRES) TAB PO PRN (16:00)
[2022-05-17] MEDS ORDERED: morphine INJ 4 MG/ML 1 ML (VIAL/SYRINGE) IV PRN (16:00)
[2022-05-17] MEDS ORDERED: ONDANSETRON 4 MG (ZOFRAN) ORAL DISSOLVE TAB PO PRN (16:00)
[2022-05-17] MEDS ORDERED: CALCIUM CARBONATE 500 MG (TUMS) TAB.CHEW PO PRN (16:00)
[2022-05-17] MEDS ORDERED: ONDANSETRON 4 MG/2 ML (SDV) Z0FRAN IV PRN (16:00)
[2022-05-17] MEDS ORDERED: MELATONIN 3 MG TABLET PO PRN (16:00)
[2022-05-17] MEDS ORDERED: LACTULOSE SYRUP 10GM/15ML (ENULOSE) 30ML UDC PO PRN (16:00)
[2022-05-17] MEDS ORDERED: diphenhydrAMINE 50 MG/ML INJ (BENADRYL) IVP PRN (16:00)
[2022-05-17] MEDS ORDERED: PATIENT MAY USE OWN MEDS, ALL PO SCH ×2 (16:00)
[2022-05-17] MEDS ORDERED: ALPRAZolam 0.5 MG (XANAX) TAB PO PRN (16:00)
[2022-05-17] MEDS ORDERED: ACETAMINOPHEN 325 MG TABLET PO PRN (16:00)
[2022-05-17 16:19] VITALS: BP 183/94
[2022-05-17] MEDS ORDERED: RT-ALBUTEROL SULF 2.5 MG/3 ML PRE-MIX VIAL INH PRN (16:45)
[2022-05-17] MEDS ORDERED: ENOXAPARIN 40 MG/0.4 ML (LOVENOX) SYR SC SCH (17:00)
--- NOTE | 2022-05-17 18:59 | Consultation-Cardiology ---
HPI-Cardiology Cardiology Consultation: Date of Consultation 05/17/22 Time Seen by a Provider: 17:30 Date of Admission Attending Physician [facility] Admitting Physician Admitting Physician: Ktaia Esposito DO Attending Physician: Katia Esposito DO Consulting Physician SRAVAN BARILLAS MD, MA, FACP, FACC, [facility] [place], CCDS Physician requesting consult: Dr Esposito HPI: Chief Complaint: Chest pain Ms. Tamayo is a 77 yr old female whom I have seen in the ED. She reports she is under increased stress d/t her son being critically ill and in our ICU at this time. She had been lifting and carrying heavy boxes yesterday after which he had noticing L later rib cage discomfort. She reports she laid down to take a nap and woke up with localized sharp stabbing pain under her left breast. She reports it was constant and significantly worse with deep breathing. She reports some increase the discomfort with movement. She states her family member drove her to the ED and by the time she arrived at the ED the pain had improved, but had not resolved. She currently reports she continues to have mild chest discomfort at rest. During her assessment when auscultating breath sounds she did report discomfort with deep breathing. She reports h/o breast cancer with left sided mastectomy and breast reconstruction over 10 yrs ago. She reports occ palpitations, which she describes as a skipped beat lasting only a few seconds. She reports if she turns her head to quickly she has dizziness, but reports that has been present since her back surgery last year. No c/o syncope or near syncope. No c/o LE swelling. No c/o n/v/d. No c/o fever or chills. Review of Systems-Cardiology Review of Systems Constitutional: As described under HPI; No chills, No fever; tiredness Eyes: No vision change Ears/Nose/Throat: No epistaxis, No recent hearing loss Respiratory: As described under HPI Cardiovascular: As described under HPI Gastrointestinal: No constipation, No diarrhea, No nausea, No vomiting Genitourinary: No dysuria, No hematuria Musculoskeletal: back pain Skin: No rash on exposed areas, No ulcerations on exposed areas Psychiatric/Neurological: No anxiety, No depression, No seizure, No focal weakness, No syncope Hematologic: No bleeding abnormalities All Other Systems Reviewed Negative Unless Noted: Yes DNF-Mozuav-Prxmsu Hx Patient Social History Have you traveled recently?: No Alcohol Use?: No Pt feels they are or have been: No Past Medical History PMH As described under Assessment. Family Medical History Family Medical History: Cecilio reports her father passed from an [place] at age 45. She reports her mother and father both had heart disease. Allergies and Home Medications Allergies Coded Allergies: No Known Drug Allergies (Unverified , 04/14/21) Patient Home Medication List Home Medication List Reviewed: Yes Physical Exam-Cardiology Physical Exam Vital Signs/I&O 05/17/22 05/17/22 05/17/22 05/17/22 13:07 15:33 15:48 16:00 Temp 36.4 36.4 36.6 Pulse 85 78 71 71 Resp 18 16 16 B/P (MAP) 183/94 (123) 156/77 164/84 (110) Pulse Ox 100 O2 Delivery Room Air 05/17/22 05/17/22 05/17/22 16:07 16:19 16:31 Temp 36.4 Pulse 85 Pulse Ox 100 100 O2 Delivery Room Air Room Air FiO2 21 Capillary Refill : Constitutional: AAO x 3, well-developed, other (thin) HEENT: PERRL, hearing is well preserved, oral hygience is good Neck: No carotid bruit; carotid pulses are 2 + bilaterally Respiratory: No accessory muscle use, No respiratory distress; chest expansion is symmetric, chest is bilaterally symmetric, lungs clear to auscultation Cardiovascular: regular rate-rhythm; No JVD; S1 and S2, other (pain reproducible to palptaion in the L inframammary area) Gastrointestinal: No tender; soft; No guarding; audible bowel sounds Extremities: no lower extremity edema bilateral Neurologic/Psychiatric: oriented x 3, other (moves all limbss) Skin: No rash on exposed areas, No ulcerations on exposed areas Data Review Labs Laboratory Tests 05/17/22 13:16: White Blood Count 8.1, Red Blood Count 3.96, Hemoglobin 10.6L, Hematocrit 33L, Mean Corpuscular Volume 84, Mean Corpuscular Hemoglobin 27, Mean Corpuscular Hemoglobin Concent 32, Red Cell Distribution Width 15.2H, Platelet Count 366, Mean Platelet Volume 8.9L, Immature Granulocyte % (Auto) 0, Neutrophils (%) (Auto) 70, Lymphocytes (%) (Auto) 19, Monocytes (%) (Auto) 10, Eosinophils (%) (Auto) 1, Basophils (%) (Auto) 1, Neutrophils # (Auto) 5.6, Lymphocytes # (Auto) 1.6, Monocytes # (Auto) 0.8, Eosinophils # (Auto) 0.1, Basophils # (Auto) 0.1, Immature Granulocyte # (Auto) 0.0, Prothrombin Time 13.7, INR Comment 1.0, Activated Partial Thromboplast Time 35, D-Dimer <= 0.27, Sodium Level 140, Potassium Level 3.9, Chloride Level 112H, Carbon Dioxide Level 21, Anion Gap 7, Blood Urea Nitrogen 23H, Creatinine 1.03, Estimat Glomerular Filtration Rate 56, BUN/Creatinine Ratio 22, Glucose Level 63L, Calcium Level 9.2, Corrected Calcium 9.2, Magnesium Level 1.7, Total Bilirubin 0.4, Aspartate Amino Transf (AST/SGOT) 10, Alanine Aminotransferase (ALT/SGPT) 13, Alkaline Phosphatase 98, Myoglobin 51.2, Troponin I < 0.028, B-Type Natriuretic Peptide 114.9H, Total Protein 7.9, Albumin 4.0, Lipase 50 Laboratory Tests 05/17/22 13:16 A/P-Cardiology Assessment/Admission Diagnosis Chest pain of undetermined etiology - suspect musculoskeletal because reproducible on L inframammary palpation HTN HLD H/O masectomy d/t breast cancer with breast reconstruction greater than 10 yrs ago H/O back fusion a year ago Discussion and Recomendations Chest pain - undetermined etiology - no evidence of ACS thus far - echocardiogram to eval structure and function Continue home antihypertensive regimen Continue home hyperlipidemia regimen Monitor lab Replace electrolytes as indicated Further recs will be based on her hospital course We would like to thank Medical services for this consult Clinical Quality Measures AMI/AHF: ASA po Prior to arrival: Yes (81) SRAVAN BARILLAS MD FACP FAC CCDS May 17, 2022 18:59
[2022-05-17 20:40] VITALS: BP 169/88
[2022-05-17] MEDS: SENNOSIDES 8.6 MG (SENOKOT) TAB PO SCH (20:54)
[2022-05-17] MEDS: DOCUSATE SODIUM 100 MG (COLACE) CAP PO SCH (20:54)
[2022-05-18 00:22] VITALS: BP 157/79
[2022-05-18 03:49] VITALS: BP 142/77
[2022-05-18 05:13] LABS: BASOPHILS % (AUTO) 0 % (0-10); EOSINOPHILS % (AUTO) 0 % (0-10); HEMATOCRIT 32 % (35-52); HEMOGLOBIN 10.5 g/dL (11.5-16.0); LYMPHOCYTES # (AUTO) 0.9 10^3/uL (1.0-4.0); LYMPHOCYTES % (AUTO) 14 % (12-44); MEAN CORPUSCULAR HEMOGLOBIN 27 pg (25-34); MEAN CORPUSCULAR HGB CONC 32 g/dL (32-36); MEAN CORPUSCULAR VOLUME 83 fL (80-99); MEAN PLATELET VOLUME 9.6 fL (9.0-12.2); MONOCYTES # (AUTO) 0.6 10^3/uL (0.0-1.0); MONOCYTES % (AUTO) 9 % (0-12); NEUTROPHILS # (AUTO) 5.2 10^3/uL (1.8-7.8); NEUTROPHILS % (AUTO) 77 % (42-75); PLATELET COUNT 342 10^3/uL (130-400); WHITE BLOOD COUNT 6.8 10^3/uL (4.3-11.0)
[2022-05-18 05:24] LABS: ALBUMIN 3.6 GM/DL (3.2-4.5)
[2022-05-18 05:25] LABS: CHLORIDE 109 MMOL/L (98-107); POTASSIUM 4.4 MMOL/L (3.6-5.0); SODIUM 136 MMOL/L (135-145)
[2022-05-18 05:26] LABS: CALCIUM 9.4 MG/DL (8.5-10.1)
[2022-05-18 05:27] LABS: GLUCOSE 94 MG/DL (70-105); TOTAL PROTEIN 7.1 GM/DL (6.4-8.2)
[2022-05-18 05:28] LABS: CARBON DIOXIDE 19 MMOL/L (21-32)
[2022-05-18 05:29] LABS: BILIRUBIN,TOTAL 0.6 MG/DL (0.1-1.0)
[2022-05-18 05:30] LABS: ALKALINE PHOSPHATASE 79 U/L (40-136)
[2022-05-18 05:31] LABS: CREATININE SERUM 0.96 MG/DL (0.60-1.30); GFR ESTIMATED 61
[2022-05-18 05:32] LABS: BUN/CREATININE RATIO 20
[2022-05-18 05:33] LABS: ALANINE AMINOTRANSFERASE 10 U/L (0-55)
[2022-05-18] MEDS: SENNOSIDES 8.6 MG (SENOKOT) TAB PO SCH (08:35)
[2022-05-18] MEDS: DOCUSATE SODIUM 100 MG (COLACE) CAP PO SCH (08:35)
[2022-05-18] MEDS ORDERED: PANTOPRAZOLE 40 MG (PROTONIX) TAB PO SCH (09:00)
[2022-05-18] MEDS ORDERED: ASPIRIN E.C. 81 MG (ECOTRIN) TAB PO SCH (09:00)
[2022-05-18] MEDS ORDERED: meTOproloL SUCCINATE 50 MG (TOPROL XL) TAB PO SCH (09:00)
--- NOTE | 2022-05-18 10:01 | Short Stay Summary ---
RAFAEL KING 05/18/22 1001: History of Present Illness History of Present Illness Reason for visit/HPI Ms. Tamayo is a 77 yo F w/ hx of HTN, osteoporosis, and breast cancer s/p L mastectomy who presented 05/17 with cp. She described the cp as sharp, well- localized and w/o radiation. No associate nausea/vomiting. She said it started after she woke up from a nap, and she has never had this pain before. On exam this am, palpation of the area reproduces the pain and she notes it feels the same from yesterday. She says it also hurts with breathing and movement. EKG and troponins from ED were negative. She denies SOB, hemoptysis, cough. Date of Admission May 17, 2022 at 15:34 Date of Discharge May 18, 2022 Time Seen by Provider: 10:30 Attending Physician [place] Admitting Physician Admitting Physician: Katia Almazan DO Attending Physician: Katia Almazan DO Consult Allergies and Home Medications Allergies Coded Allergies: No Known Drug Allergies (Unverified , 04/14/21) Patient Home Medication List Home Medication List Reviewed: Yes Albuterol Sulfate (Albuterol Sulfate) 2.5 Mg/3 Ml (0.083 %) Vial.neb, 2.5 MG NEB Q6H PRN for SHORTNESS OF BREATH, (Reported) Entered as Reported by: ELEANOR CHANCE on 05/18/221101 Last Action: Reviewed Alendronate Sodium (Alendronate Sodium) 70 Mg Tablet, 70 MG PO WEEK, (Reported) Entered as Reported by: ELEANOR CHANCE on 05/18/221101 Last Action: Reviewed Aspirin (Aspirin EC) 325 Mg Tablet.dr, 325 MG PO DAILY, (Reported) Entered as Reported by: ELEANOR CHANCE on 05/18/221101 Last Action: Reviewed Calcium Carbonate (Calcium) 500 Mg Calcium (1250 Mg) Tablet, 500 MG PO DAILY, (Reported) Entered as Reported by: ELEANOR CHANCE on 05/18/221101 Last Action: Reviewed Cholecalciferol (Vitamin D3) (Vitamin D3) 50 Mcg (2000 Unit) Capsule, 50 MCG PO DAILY, (Reported) Entered as Reported by: ELEANOR CHANCE on 05/18/221101 Last Action: Reviewed Cyclobenzaprine HCl (Cyclobenzaprine HCl) 5 Mg Tablet, 10 MG PO BID PRN for MUSCLE SPASMS, (Reported) Entered as Reported by: ELEANOR CHANCE on 05/18/221101 Last Action: Reviewed Cyclobenzaprine HCl (Cyclobenzaprine HCl) 5 Mg Tablet, 10 MG PO HS, (Reported) Entered as Reported by: ELEANOR CHANCE on 05/18/221101 Last Action: Reviewed Lisinopril (Lisinopril) 40 Mg Tablet, 40 MG PO DAILY, (Reported) Entered as Reported by: ELEANOR CHANCE on 05/18/221101 Last Action: Reviewed Metoprolol Succinate (Metoprolol Succinate) 50 Mg Tab.er.24h, 50 MG PO DAILY Prescribed by: KATIA ALMAZAN on 05/18/221151 Pantoprazole Sodium (Pantoprazole Sodium) 40 Mg Tablet.dr, 40 MG PO DAILY Prescribed by: KATIA ALMAZAN on 05/18/221151 Past Lbwlrij-Vnggku-Keffeq Hx Patient Social History Marrital Status: Employed/Student: retired Smoking Status: Never a Smoker Have you traveled recently?: No Alcohol Use?: No Pt feels they are or have been: No Surgeries Yes (L Mastectomy, spinal fusion, cystocele/rectocele repair) Cardiovascular Hypertension Gastrointestinal Hiatal Hernia Musculoskeletal Osteoporosis Cancer Yes Breast Type of Treatment: Surgical Intervention Family Medical History Significant Family History: CAD Under 55 Years Old Review of Systems Constitutional: No chills, No diaphoresis, No dizziness, No fever EENTM: No blurred vision, No vision loss Respiratory: No cough, No dyspnea on exertion, No hemoptysis, No short of breath Cardiovascular: chest pain; No palpitations Gastrointestinal: No abdominal pain, No diarrhea, No heartburn, No loss of appetite, No nausea, No vomiting Musculoskeletal: back pain Skin: no symptoms reported Psychiatric/Neurological: Denies Numbness, Denies Tingling, Denies Tremors All Other Systems Reviewed Negative Unless Noted: Yes Physical Exam Vital Signs Vital Signs - First Documented 05/17/22 05/17/22 05/17/22 05/17/22 13:07 15:33 16:00 16:19 Temp 36.4 Pulse 85 Resp 18 B/P (MAP) 183/94 (123) Pulse Ox 100 O2 Delivery Room Air FiO2 21 Capillary Refill : Height, Weight, BMI Height: '" Weight: lbs. oz. kg; 19.15 BMI Method: General Appearance: No Apparent Distress, Cachetic Eyes: Bilateral Eye Normal Inspection, Bilateral Eye PERRL, Bilateral Eye EOMI HEENT: PERRL/EOMI, Moist Mucous Membranes; No Scleral Icterus (L), No Scleral Icterus (R) Neck: Normal Inspection, Non Tender, Supple; No JVD Respiratory: Lungs Clear, Normal Breath Sounds, No Accessory Muscle Use, No Respiratory Distress, Other Cardiovascular: Regular Rate, Rhythm, No JVD, No Murmur, Normal Peripheral Pulses, Other (TTP on lower left side of chest) Gastrointestinal: Non Tender, Soft; No Distended Extremity: Normal Inspection, Non Tender, No Calf Tenderness, No Pedal Edema Neurologic/Psychiatric: Alert, Oriented x3 Skin: Normal Color, Warm/Dry; No Diaphoresis, No Jaundice Clinical Quality Measures AMI/AHF: ASA po Prior to arrival: Yes (81) Short Stay Diagnosis Discharge Diagnosis-Short Stay Admission Diagnosis: nonspecific cp Final Discharge Diagnosis: nonspecific cp Conclusion Labs Laboratory Tests 05/17/22 13:16: White Blood Count 8.1, Red Blood Count 3.96, Hemoglobin 10.6L, Hematocrit 33L, Mean Corpuscular Volume 84, Mean Corpuscular Hemoglobin 27, Mean Corpuscular Hemoglobin Concent 32, Red Cell Distribution Width 15.2H, Platelet Count 366, Mean Platelet Volume 8.9L, Immature Granulocyte % (Auto) 0, Neutrophils (%) (Auto) 70, Lymphocytes (%) (Auto) 19, Monocytes (%) (Auto) 10, Eosinophils (%) (Auto) 1, Basophils (%) (Auto) 1, Neutrophils # (Auto) 5.6, Lymphocytes # (Auto) 1.6, Monocytes # (Auto) 0.8, Eosinophils # (Auto) 0.1, Basophils # (Auto) 0.1, Immature Granulocyte # (Auto) 0.0, Prothrombin Time 13.7, INR Comment 1.0, Activated Partial Thromboplast Time 35, D-Dimer <= 0.27, Sodium Level 140, Potassium Level 3.9, Chloride Level 112H, Carbon Dioxide Level 21, Anion Gap 7, Blood Urea Nitrogen 23H, Creatinine 1.03, Estimat Glomerular Filtration Rate 56, BUN/Creatinine Ratio 22, Glucose Level 63L, Calcium Level 9.2, Corrected Calcium 9.2, Magnesium Level 1.7, Total Bilirubin 0.4, Aspartate Amino Transf (AST/SGOT) 10, Alanine Aminotransferase (ALT/SGPT) 13, Alkaline Phosphatase 98, Myoglobin 51.2, Troponin I < 0.028, B-Type Natriuretic Peptide 114.9H, Total Protein 7.9, Albumin 4.0, Lipase 50 05/18/22 04:32: White Blood Count 6.8, Red Blood Count 3.92, Hemoglobin 10.5L, Hematocrit 32L, Mean Corpuscular Volume 83, Mean Corpuscular Hemoglobin 27, Mean Corpuscular Hemoglobin Concent 32, Red Cell Distribution Width 15.4H, Platelet Count 342, Mean Platelet Volume 9.6, Immature Granulocyte % (Auto) 0, Neutrophils (%) (Auto) 77H, Lymphocytes (%) (Auto) 14, Monocytes (%) (Auto) 9, Eosinophils (%) (Auto) 0, Basophils (%) (Auto) 0, Neutrophils # (Auto) 5.2, Lymphocytes # (Auto) 0.9L, Monocytes # (Auto) 0.6, Eosinophils # (Auto) 0.0, Basophils # (Auto) 0.0, Immature Granulocyte # (Auto) 0.0, Sodium Level 136, Potassium Level 4.4, Chloride Level 109H, Carbon Dioxide Level 19L, Anion Gap 8, Blood Urea Nitrogen 19H, Creatinine 0.96, Estimat Glomerular Filtration Rate 61, BUN/Creatinine Ratio 20, Glucose Level 94, Calcium Level 9.4, Corrected Calcium 9.7, Total Bilirubin 0.6, Aspartate Amino Transf (AST/SGOT) 8, Alanine Aminotransferase (ALT/SGPT) 10, Alkaline Phosphatase 79, Troponin I < 0.028, Total Protein 7.1, Albumin 3.6 Conclusion/Plan Nonspecific cp -likely Costochondritis/msk issue vs acs -trops wnl -ekg normal, sinus rhythm -cxr without cardiopulm process -cards on board, echo performed HTN -home meds Hx osteorosis -home meds KATIA ALMAZAN DO 05/19/22 0512: Allergies and Home Medications Allergies Coded Allergies: No Known Drug Allergies (Unverified , 04/14/21) Patient Home Medication List Albuterol Sulfate (Albuterol Sulfate) 2.5 Mg/3 Ml (0.083 %) Vial.neb, 2.5 MG NEB Q6H PRN for SHORTNESS OF BREATH, (Reported) Entered as Reported by: ELEANOR CHANCE on 05/18/221101 Last Action: Reviewed Alendronate Sodium (Alendronate Sodium) 70 Mg Tablet, 70 MG PO WEEK, (Reported) Entered as Reported by: ELEANOR CHANCE on 05/18/221101 Last Action: Reviewed Aspirin (Aspirin EC) 325 Mg Tablet.dr, 325 MG PO DAILY, (Reported) Entered as Reported by: ELEANOR CHANCE on 05/18/221101 Last Action: Reviewed Calcium Carbonate (Calcium) 500 Mg Calcium (1250 Mg) Tablet, 500 MG PO DAILY, (Reported) Entered as Reported by: ELEANOR CHANCE on 05/18/221101 Last Action: Reviewed Cholecalciferol (Vitamin D3) (Vitamin D3) 50 Mcg (2000 Unit) Capsule, 50 MCG PO DAILY, (Reported) Entered as Reported by: ELEANOR CHANCE on 05/18/221101 Last Action: Reviewed Cyclobenzaprine HCl (Cyclobenzaprine HCl) 5 Mg Tablet, 10 MG PO BID PRN for MUSCLE SPASMS, (Reported) Entered as Reported by: ELEANOR CHANCE on 05/18/221101 Last Action: Reviewed Cyclobenzaprine HCl (Cyclobenzaprine HCl) 5 Mg Tablet, 10 MG PO HS, (Reported) Entered as Reported by: ELEANOR CHANCE on 05/18/221101 Last Action: Reviewed Lisinopril (Lisinopril) 40 Mg Tablet, 40 MG PO DAILY, (Reported) Entered as Reported by: ELEANOR CHANCE on 05/18/221101 Last Action: Reviewed Metoprolol Succinate (Metoprolol Succinate) 50 Mg Tab.er.24h, 50 MG PO DAILY Prescribed by: KATIA ALMAZAN on 05/18/221151 Pantoprazole Sodium (Pantoprazole Sodium) 40 Mg Tablet.dr, 40 MG PO DAILY Prescribed by: KATIA ALMAZAN on 05/18/221151 Short Stay Diagnosis Discharge Diagnosis-Short Stay Admission Diagnosis: Chest pain Final Discharge Diagnosis: Chest pain without ACS Conclusion Conclusion/Plan DC Supervisory-Addendum Brief Verification & Attestation Participated in pt care: history, MDM, physical Personally performed: exam, history, MDM, supervision of care Care discussed with: Medical Student Procedures: n/a Results interpretation: Verified all documentation Verification and Attestation of Medical Student E/M Service A medical student performed and documented this service in my presence. I reviewed and verified all information documented by the medical student and made modifications to such information, when appropriate. I personally performed the physical exam and medical decision making. Katia Almazan, May 19, 2022,05:12 RAFAEL KING May 18, 2022 10:01 KATIA ALMAZAN DO May 19, 2022 05:12
[2022-05-18] MEDS ORDERED: CHOL20002 PO (11:02)
[2022-05-18] MEDS ORDERED: ALBU2.5V4 NEB (11:02)
[2022-05-18] MEDS ORDERED: LISI40TA9 PO (11:02)
[2022-05-18] MEDS ORDERED: CYCL5TAB PO ×2 (11:02)
[2022-05-18] MEDS ORDERED: ALEN70TA80 PO (11:02)
[2022-05-18] MEDS ORDERED: CALC-823 PO (11:02)
[2022-05-18] MEDS ORDERED: ASPI325T32 PO (11:02)
[2022-05-18] MEDS ORDERED: METO50TA7 PO (11:52)
[2022-05-18] MEDS ORDERED: PANT40TA52 PO (11:52)
[2022-05-18 12:39] VITALS: BP 126/80
--- NOTE | 2022-05-18 20:10 | Progress Note - Cardiology ---
Cardiology SOAP Progress Note Subjective: No shortness of breath L inframammary pain is slowly improving No n/v/d No palp or syncope Objective: I&O/Vital Signs 05/18/22 05/18/22 11:00 12:39 Temp 36.6 36.6 Pulse 70 Resp 12 B/P (MAP) 126/80 O2 Delivery Room Air O2 Flow Rate 0.00 05/18/22 00:00 Intake Total 550 ml Balance 550 ml Constitutional: AAO x 3, well-developed, other (thin) Respiratory: No accessory muscle use, No respiratory distress; chest expansion is symmetric, chest is bilaterally symmetric, lungs clear to auscultation Cardiovascular: regular rate-rhythm; No JVD; S1 and S2, other (pain reproducible to palptaion in the L inframammary area) Gastrointestional: No tender; soft; No guarding; audible bowel sounds Extremities: no lower extremity edema bilateral Neurologic/Psychiatric: oriented x 3, other (moves all limbss) Skin: No rash on exposed areas, No ulcerations on exposed areas Results/Procedures: Labs Laboratory Tests 05/18/22 04:32: White Blood Count 6.8, Red Blood Count 3.92, Hemoglobin 10.5L, Hematocrit 32L, Mean Corpuscular Volume 83, Mean Corpuscular Hemoglobin 27, Mean Corpuscular Hemoglobin Concent 32, Red Cell Distribution Width 15.4H, Platelet Count 342, Mean Platelet Volume 9.6, Immature Granulocyte % (Auto) 0, Neutrophils (%) (Auto) 77H, Lymphocytes (%) (Auto) 14, Monocytes (%) (Auto) 9, Eosinophils (%) (Auto) 0, Basophils (%) (Auto) 0, Neutrophils # (Auto) 5.2, Lymphocytes # (Auto) 0.9L, Monocytes # (Auto) 0.6, Eosinophils # (Auto) 0.0, Basophils # (Auto) 0.0, Immature Granulocyte # (Auto) 0.0, Sodium Level 136, Potassium Level 4.4, Chloride Level 109H, Carbon Dioxide Level 19L, Anion Gap 8, Blood Urea Nitrogen 19H, Creatinine 0.96, Estimat Glomerular Filtration Rate 61, BUN/Creatinine Ratio 20, Glucose Level 94, Calcium Level 9.4, Corrected Calcium 9.7, Total Bilirubin 0.6, Aspartate Amino Transf (AST/SGOT) 8, Alanine Aminotransferase (ALT/SGPT) 10, Alkaline Phosphatase 79, Troponin I < 0.028, Total Protein 7.1, Albumin 3.6 Laboratory Tests 05/17/22 13:16 05/18/22 04:32 A/P: Assessment: Chest pain of undetermined etiology - suspect musculoskeletal because reproducible on L inframammary palpation - serial cardiac enzymes negative for myocardial injury - Echo on 05/18/22: LVEF 60-65%, now RWMA HTN HLD H/o masectomy d/t breast cancer with breast reconstruction greater than 10 yrs ago H/o back fusion a year ago Plan: * Chest discomfort does not appear to be of cardiac origin (see w/u described above) * Ok to d/c from cardiac standpoint * Outpt f/u advised * Questions answered Clinical Quality Measures AMI/AHF: ASA po Prior to arrival: Yes (81) SRAVAN BARILLAS MD FACP FAC CCDS May 18, 2022 20:10
== END 2022-05-18 12:47 | disposition home or self-care (01) ==
LOC: EDUNIT# 13:03 → ER 13:06 → CSD 15:34
PROVIDERS: ADMIT Internal Medicine; ATTEND Internal Medicine
DX: R07.89 Other chest pain (principal); I10 Essential (primary) hypertension; R06.02 Shortness of breath; E78.5 Hyperlipidemia, unspecified; Z90.10 Acquired absence of unspecified breast and nipple; Z98.1 Arthrodesis status; Z79.899 Other long term (current) drug therapy
CPT/HCPCS: 71045; 80053 ×2; 83690; 83735; 83874; 83880; 84484 ×2; 85025 ×2; 85379; 85610; 85730; 93005 ×2; 93041; 99284; C8929; 36415; 93306; 96372; 96375

== ENCOUNTER 2022-10-27 16:28 | Emergency (ER) | payer MEDICARE ==
[~2022-10-27] VITALS: Ht 165.1 cm; Wt 51.7 kg
[~2022-10-27 16:28] MED LIST changes: +ALBU2.5V4 NEB; +ALEN70TA80 PO; +ASPI325T32 PO; +CALC-823 PO; +CHOL20002 PO; +CYCL5TAB PO; -LIDOCAINE 1% INJ 20 ML VIAL INJ ONE; +LISI40TA9 PO; +METO50TA7 PO; +PANT40TA52 PO
--- NOTE | 2022-10-27 16:37 | ED Chest Pain ---
General Chief Complaint: Chest Pain Stated Complaint: CHEST PAIN Nursing Triage Note: PT ARRIVED BY [facility] WITH CC OF CP AND SOB THAT STARTED AT 1330 (CAITLIN LEMUS DO) History of Present Illness Date Seen by Provider: Oct 27, 2022 Time Seen by Provider: 16:35 Initial Comments 77-year-old female presents with some chest pain. Reports that she had some left-sided chest pain with pain radiating to her back that started around 3 to 3:30 PM. Patient called EMS due to the pain.. EMS reports that they gave her an aspirin and the pain went to a 6 out of 10 from a 10 out of 10 and then had Nitropaste and it went to a 4 out of 10 and upon arrival is a 3 out of 10. 12 lead EKG was done in the field and reviewed that shows no acute finding. patient reports some mild shortness of breath. She reports for last couple months whenever she gets up and does any activity she gets some pain in her back and gets dizzy. Reports she been under a lot of stress as she has an alcoholic son and then a grandkid has moved in with her and they have 5 kids is also contributing to a lot of her stress. (CAITLIN LEMUS DO) Allergies and Home Medications Allergies Coded Allergies: No Known Drug Allergies (Unverified , 04/14/21) Patient Home Medication List Home Medication List Reviewed: Yes (CAITLIN LEMUS DO) Home Medication List Reviewed: Yes (MARYCRUZ HERNANDEZ MD) Albuterol Sulfate (Albuterol Sulfate) 2.5 Mg/3 Ml (0.083 %) Vial.neb, 2.5 MG NEB Q6H PRN for SHORTNESS OF BREATH, (Reported) Entered as Reported by: ELEANOR CHANCE on 05/18/22 110 Alendronate Sodium (Alendronate Sodium) 70 Mg Tablet, 70 MG PO WEEK, (Reported) Entered as Reported by: ELEANOR CHANCE on 05/18/22 110 Aspirin (Aspirin EC) 325 Mg Tablet.dr, 325 MG PO DAILY, (Reported) Entered as Reported by: ELEANOR CHANCE on 05/18/22 110 Calcium Carbonate (Calcium) 500 Mg Calcium (1250 Mg) Tablet, 500 MG PO DAILY, (Reported) Entered as Reported by: ELEANOR CHANCE on 05/18/221101 Cholecalciferol (Vitamin D3) (Vitamin D3) 50 Mcg (2000 Unit) Capsule, 50 MCG PO DAILY, (Reported) Entered as Reported by: ELEANOR CHANCE on 05/18/221101 Cyclobenzaprine HCl (Cyclobenzaprine HCl) 5 Mg Tablet, 10 MG PO BID PRN for MUSCLE SPASMS, (Reported) Entered as Reported by: ELEANOR CHANCE on 05/18/221101 Cyclobenzaprine HCl (Cyclobenzaprine HCl) 5 Mg Tablet, 10 MG PO HS, (Reported) Entered as Reported by: ELEANOR CHANCE on 05/18/221101 Lisinopril (Lisinopril) 40 Mg Tablet, 40 MG PO DAILY, (Reported) Entered as Reported by: ELEANOR CHANCE on 05/18/221101 Metoprolol Succinate (Metoprolol Succinate) 50 Mg Tab.er.24h, 50 MG PO DAILY Prescribed by: JAMIE ALMAZAN on 05/18/221151 Pantoprazole Sodium (Pantoprazole Sodium) 40 Mg Tablet.dr, 40 MG PO DAILY Prescribed by: JAMIE ALMAZAN on 05/18/22 1152 Review of Systems Review of Systems Constitutional: No chills, No fever Respiratory: See HPI; Denies Cough Cardiovascular: See HPI, Chest Pain Gastrointestinal: See HPI Genitourinary: No Symptoms Reported Musculoskeletal: no symptoms reported Skin: no symptoms reported Psychiatric/Neurological: No Symptoms Reported Endocrine: No Symptoms Reported Hematologic/Lymphatic: No Symptoms Reported (CAITLIN LEMUS DO) Past Xnjefmb-Aykdbi-Vycwnz Hx Immunizations Up To Date First/Initial COVID19 Vaccinat: 11/30 Second COVID19 Vaccination Steve: X3 Third COVID19 Vaccination Date: X3 (CAITLIN LEMUS DO) Past Medical History Surgery/Hospitalization HX: HTN. HLD Surgeries: Yes (L Mastectomy, spinal fusion, cystocele/rectocele repair) Hypertension Hiatal Hernia Osteoporosis Cancer: Yes Breast What Type of Treatment Did You: Surgical Intervention (CAITLIN LEMUS DO) Family Medical History CAD Under 55 Years Old (CAITLIN LEMUS DO) Physical Exam Vital Signs Vital Signs - First Documented 10/27/22 16:30 Pulse 84 B/P (MAP) 156/88 (110) Pulse Ox 99 O2 Delivery Room Air (MARYCRUZ HERNANDEZ MD) Vital Signs Capillary Refill : (LEMUS,CAITLIN L DO) Height, Weight, BMI Height: '" Weight: lbs. oz. 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 Norm as Tested Skin: Normal Color, Warm/Dry (LEMUS,CAITLIN L DO) Progress/Results/Core Measures Results/Orders Lab Results Laboratory Tests Test 10/27/22 16:35 10/27/22 18:39 Range/Units White Blood Count 5.4 4.3-11.0 10^3/uL Red Blood Count 3.81 3.80-5.11 10^6/uL Hemoglobin 10.0 L 11.5-16.0 g/dL Hematocrit 33 L 35-52 % Mean Corpuscular Volume 86 80-99 fL Mean Corpuscular Hemoglobin 26 25-34 pg Mean Corpuscular Hemoglobin Concent 31 L 32-36 g/dL Red Cell Distribution Width 14.5 10.0-14.5 % Platelet Count 334 130-400 10^3/uL Mean Platelet Volume 9.1 9.0-12.2 fL Immature Granulocyte % (Auto) 0 % Neutrophils (%) (Auto) 73 42-75 % Lymphocytes (%) (Auto) 15 12-44 % Monocytes (%) (Auto) 10 0-12 % Eosinophils (%) (Auto) 1 0-10 % Basophils (%) (Auto) 1 0-10 % Neutrophils # (Auto) 3.9 1.8-7.8 10^3/uL Lymphocytes # (Auto) 0.8 L 1.0-4.0 10^3/uL Monocytes # (Auto) 0.5 0.0-1.0 10^3/uL Eosinophils # (Auto) 0.1 0.0-0.3 10^3/uL Basophils # (Auto) 0.0 0.0-0.1 10^3/uL Immature Granulocyte # (Auto) 0.0 0.0-0.1 10^3/uL D-Dimer 0.63 H 0.00-0.49 UG/ML Sodium Level 138 135-145 MMOL/L Potassium Level 4.6 3.6-5.0 MMOL/L Chloride Level 109 H 98-107 MMOL/L Carbon Dioxide Level 23 21-32 MMOL/L Anion Gap 6 5-14 MMOL/L Blood Urea Nitrogen 29 H 7-18 MG/DL Creatinine 1.43 H 0.60-1.30 MG/DL Estimat Glomerular Filtration Rate 38 BUN/Creatinine Ratio 20 Glucose Level 115 H 70-105 MG/DL Calcium Level 8.9 8.5-10.1 MG/DL Corrected Calcium 9.1 8.5-10.1 MG/DL Magnesium Level 1.8 1.6-2.4 MG/DL Total Bilirubin 0.5 0.1-1.0 MG/DL Aspartate Amino Transf (AST/SGOT) 9 5-34 U/L Alanine Aminotransferase (ALT/SGPT) 10 0-55 U/L Alkaline Phosphatase 93 40-136 U/L Troponin I < 0.028 < 0.028 <0.028 NG/ML Total Protein 7.2 6.4-8.2 GM/DL Albumin 3.7 3.2-4.5 GM/DL (MARYCRUZ HERNANDEZ MD) My Orders Orders - MARYCRUZ HERNANDEZ MD Troponin I Michael (10/27/22 19:00) (MARYCRUZ HERNANDEZ MD) Vital Signs/I&O 10/27/22 10/27/22 16:30 20:22 Pulse 84 73 B/P (MAP) 156/88 (110) 161/95 Pulse Ox 99 99 O2 Delivery Room Air Room Air (MARYCRUZ HERNANDEZ MD) Progress Progress Note : Time: 20:11 Progress Note Patient reevaluated after second troponin resulted as negative. She has remained pain-free since shift change at 6 PM. Her vital signs are stable. Currently blood pressure 161/88, heart rate 75 97% on room air. She is comfortable with discharge to home. We discussed return precautions as well as my encouragement to follow-up with her primary care physician on Sunday. She is agreeable with the plan. No further questions. (MARYCRUZ HERNANDEZ MD) Initial ECG Impression Date: Oct 27, 2022 Initial ECG Impression Time: 16:37 Initial ECG Rate: 80 Initial ECG Rhythm: Normal Sinus Initial ECG Impression: Normal (CAITLIN LEMUS DO) Diagnostic Imaging Diagonstic Imaging: Xray Plain Films/CT/US/NM/MRI: chest Comments ADMIT DATE: 10/27/22/ER Signed Date of Exam:10/27/22 CHEST 1 VIEW, AP/PA ONLY INDICATION: Chest pain starting earlier today TECHNIQUE: Single view chest 4:44 PM CORRELATION STUDY: 05/17/2022 FINDINGS: Likely massive esophageal hernia again demonstrated with a large portion in the stomach in the lower chest. Heart is obscured. Vasculature overall appearing to be within normal limits. Likely some compressive atelectasis at the lung bases. No definitive infiltrate. Surgical clips over the left chest. IMPRESSION: 1. Likely large esophageal hernia appearing generally stable from prior. No acute cardiopulmonary abnormality. Reviewed: Reviewed by Me, Reviewed/Discussed (CAITLIN LEMUS DO) Transfer of Care Time: 18:00 Care transferred to: Dr Hernandez (CAITLIN LEMUS DO) Departure Impression Primary Impression: Chest pain Qualified Codes: R07.9 - Chest pain, unspecified Additional Impression: Hiatal hernia Disposition: HOME, SELF-CARE Condition: Improved Departure-Patient Inst. Decision time for Depature: 20:08 (MARYCRUZ HERNANDEZ MD) Referrals: ELEANOR ALDRICH DO (PCP/Family) Primary Care Physician Patient Instructions: Chest Pain That Is Not Caused by the Heart (DC), Hiatal Hernia (DC) Add. Discharge Instructions: Continue your daily medications as prescribed. Please touch base with Dr Almazan's office on Sunday. If you have another episode of Chest Pain - especially that causes you to be short of breath or nauseated, please return to the Emergency Department for re- evaluation. CAITLIN LEMUS DO Oct 27, 2022 16:37 MARYCRUZ HERNANDEZ MD Oct 27, 2022 20:13
[2022-10-27 16:49] LABS: BASOPHILS % (AUTO) 1 % (0-10); EOSINOPHILS # (AUTO) 0.1 10^3/uL (0.0-0.3); EOSINOPHILS % (AUTO) 1 % (0-10); HEMATOCRIT 33 % (35-52); LYMPHOCYTES # (AUTO) 0.8 10^3/uL (1.0-4.0); LYMPHOCYTES % (AUTO) 15 % (12-44); MEAN CORPUSCULAR HEMOGLOBIN 26 pg (25-34); MEAN CORPUSCULAR HGB CONC 31 g/dL (32-36); MEAN CORPUSCULAR VOLUME 86 fL (80-99); MEAN PLATELET VOLUME 9.1 fL (9.0-12.2); MONOCYTES # (AUTO) 0.5 10^3/uL (0.0-1.0); MONOCYTES % (AUTO) 10 % (0-12); NEUTROPHILS # (AUTO) 3.9 10^3/uL (1.8-7.8); NEUTROPHILS % (AUTO) 73 % (42-75); PLATELET COUNT 334 10^3/uL (130-400); WHITE BLOOD COUNT 5.4 10^3/uL (4.3-11.0)
[2022-10-27 17:02] LABS: ALBUMIN 3.7 GM/DL (3.2-4.5); CHLORIDE 109 MMOL/L (98-107); POTASSIUM 4.6 MMOL/L (3.6-5.0); SODIUM 138 MMOL/L (135-145)
[2022-10-27 17:03] LABS: CALCIUM 8.9 MG/DL (8.5-10.1)
[2022-10-27 17:04] LABS: GLUCOSE 115 MG/DL (70-105)
[2022-10-27 17:05] LABS: TOTAL PROTEIN 7.2 GM/DL (6.4-8.2)
[2022-10-27 17:06] LABS: BILIRUBIN,TOTAL 0.5 MG/DL (0.1-1.0); CARBON DIOXIDE 23 MMOL/L (21-32)
--- NOTE | 2022-10-27 17:06 | Diagnostic Imaging Report ---
INDICATION: Chest pain starting earlier today TECHNIQUE: Single view chest 4:44 PM CORRELATION STUDY: 05/17/2022 FINDINGS: Likely massive esophageal hernia again demonstrated with a large portion in the stomach in the lower chest. Heart is obscured. Vasculature overall appearing to be within normal limits. Likely some compressive atelectasis at the lung bases. No definitive infiltrate. Surgical clips over the left chest. IMPRESSION: 1. Likely large esophageal hernia appearing generally stable from prior. No acute cardiopulmonary abnormality. Dictated by: Dictated on workstation # [id number]
[2022-10-27 17:08] LABS: ALKALINE PHOSPHATASE 93 U/L (40-136); CREATININE SERUM 1.43 MG/DL (0.60-1.30); GFR ESTIMATED 38
[2022-10-27 17:09] LABS: BUN/CREATININE RATIO 20
[2022-10-27 17:11] LABS: ALANINE AMINOTRANSFERASE 10 U/L (0-55); MAGNESIUM 1.8 MG/DL (1.6-2.4)
[2022-10-27 20:22] VITALS: BP 161/95
== END 2022-10-27 20:24 | disposition home or self-care (01) ==
LOC: EDUNIT# 16:28 → ER 16:29
DX: K44.9 Diaphragmatic hernia without obstruction or gangrene (principal)
CPT/HCPCS: 36415; 71045; 80053; 83735; 84484; 85025; 85027; 85379; 93005

== ENCOUNTER 2022-12-30 16:43 | Inpatient (IN) | payer MEDICARE ==
[~2022-12-30] VITALS: Ht 165.1 cm; Wt 47.7 kg
[2022-12-30 17:38] LABS: BASOPHILS # (AUTO) 0.1 10^3/uL (0.0-0.1); BASOPHILS % (AUTO) 0 % (0-10); EOSINOPHILS # (AUTO) 0.1 10^3/uL (0.0-0.3); EOSINOPHILS % (AUTO) 1 % (0-10); HEMATOCRIT 28 % (35-52); HEMOGLOBIN 8.8 g/dL (11.5-16.0); LYMPHOCYTES % (AUTO) 8 % (12-44); MEAN CORPUSCULAR HEMOGLOBIN 27 pg (25-34); MEAN CORPUSCULAR HGB CONC 32 g/dL (32-36); MEAN CORPUSCULAR VOLUME 86 fL (80-99); MEAN PLATELET VOLUME 9.3 fL (9.0-12.2); MONOCYTES # (AUTO) 1.3 10^3/uL (0.0-1.0); MONOCYTES % (AUTO) 10 % (0-12); NEUTROPHILS # (AUTO) 11.1 10^3/uL (1.8-7.8); NEUTROPHILS % (AUTO) 81 % (42-75); PLATELET COUNT 547 10^3/uL (130-400); WHITE BLOOD COUNT 13.7 10^3/uL (4.3-11.0)
[2022-12-30 17:51] LABS: ALBUMIN 3.2 GM/DL (3.2-4.5)
[2022-12-30 17:52] LABS: CALCIUM 9.6 MG/DL (8.5-10.1)
[2022-12-30 17:53] LABS: TOTAL PROTEIN 7.3 GM/DL (6.4-8.2)
[2022-12-30 17:55] LABS: BILIRUBIN,TOTAL 0.8 MG/DL (0.1-1.0)
[2022-12-30 17:57] LABS: CREATININE SERUM 1.14 MG/DL (0.60-1.30)
[2022-12-30 18:00] LABS: MAGNESIUM 1.6 MG/DL (1.6-2.4)
[2022-12-30 18:04] LABS: CLARITY,URINE CLEAR; COLOR,URINE YELLOW; GLUCOSE, URINE (UA) NEGATIVE (NEGATIVE); KETONES,URINE TRACE (NEGATIVE); NITRITE,URINE NEGATIVE (NEGATIVE); PROTEIN,URINE 2+ (NEGATIVE)
[2022-12-30 18:05] LABS: BACTERIA,URINE MODERATE /HPF; BILIRUBIN,URINE 1+ (NEGATIVE); LEUKOCYTE ESTERASE ,URINE TRACE (NEGATIVE)
--- NOTE | 2022-12-30 18:09 | ED General ---
General Chief Complaint: General Problems/Pain Stated Complaint: WEIGHT LOSS/WEAKNESS/LOSS OF APPETITE Nursing Triage Note: PT STATES SHE HAS LOST AROUND 30LBS OVER THE LAST 3 MONTHS, HAS BEEN FEELING BAD FOR THAT LONG, GETS SICK EVERY TIME SHE TRIES TO EAT, HAS DRY MOUTH, FEELS WEAK. STATES SHE HAS SEEN DR ALMAZAN FOR THESE COMPLAINTS LAST WEEK AND WAS TOLD TO DRINK GATORADE AND NUTRITION DRINKS BUT IS UNABLE TO Source of Information: Patient, Other ([employer] [id number] BY MARRIAGE) History of Present Illness Date Seen by Provider: Dec 30, 2022 Time Seen by Provider: 17:50 Initial Comments PT ARRIVES VIA POV FROM HOME, WITH [employer] [id number] BY MARRIAGE ( PT LIVES WITH HER AND 9 OTHER FAMILY MEMBERS INCLUDING 5 SMALL CHILDREN) PT STATES SHE HAS "FELT PUNY" FOR THE LAST 4 MONTHS SYMPTOMS NO DIFFERENT TODAY IN ANY WAY PT WITH A MULTITUDE OF COMPLAINTS, NONE ARE DIFFERENT TONIGHT IN ANY WAY ( SUNDAY NIGHT PT COMPLAINS OF: -FATIGUE/NO ENERGY -GENERALIZED WEAKNESS -SHORTNESS OF BREATH, ESPECIALLY WITH ANY EXERTION -CHEST PAIN--WORSE WITH EXERTION -NECK AND BACK PAIN--HAS NECK AND CHRONIC BACK PAIN --WORSE WITH EXERTION -SHIVERING AND CHILLS -NON-PRODUCTIVE COUGH -DIZZINESS -LEFT ARM NUMBNESS OFF AND ON--NOT NOW. NO MOTOR DEFICITS -NAUSEA EVERY TIME SHE EATS AND DRY MOUTH -HAS LOST 30# IN THE LAST 3 MONTHS HAD ROUTINE EXAM BY DR. ALDRICH LAST Sunday12/22/22. NO TESTS DONE. HAD FLU AND SHINGLES VACCINES AT THAT TIME PT HAS HAD COVID VACCINE X 3 PT HAS HTN AND HIATAL HERNIA, CHRONIC NECK / BACK PAIN SHE HAS HISTORY OF BREAST CANCER--S/P LEFT MASTECTOMY --WITH RECURRENCE 2011, PLUS CHEMO AND RADIATION SHE HAS HAD BACK SURGERY, AND HYSTERECTOMY--OVARIES INTACT NO HISTORY OF SMOKING, ALCOHOL OR DRUG USE PCP: DR. ALDRICH AT [facility] Allergies and Home Medications Allergies Coded Allergies: No Known Drug Allergies (Unverified , 04/14/21) Patient Home Medication List Albuterol Sulfate (Albuterol Sulfate) 2.5 Mg/3 Ml (0.083 %) Vial.neb, 2.5 MG NEB Q6H PRN for SHORTNESS OF BREATH, (Reported) Entered as Reported by: ELEANOR CHANCE on 05/18/221101 Alendronate Sodium (Alendronate Sodium) 70 Mg Tablet, 70 MG PO WEEK, (Reported) Entered as Reported by: ELEANOR CHANCE on 05/18/221101 Aspirin (Aspirin EC) 325 Mg Tablet.dr, 325 MG PO DAILY, (Reported) Entered as Reported by: ELEANOR CHANCE on 05/18/221101 Calcium Carbonate (Calcium) 500 Mg Calcium (1250 Mg) Tablet, 500 MG PO DAILY, (R eported) Entered as Reported by: ELEANOR CHANCE on 05/18/221101 Cholecalciferol (Vitamin D3) (Vitamin D3) 50 Mcg (2000 Unit) Capsule, 50 MCG PO DAILY, (Reported) Entered as Reported by: ELEANOR CHANCE on 05/18/221101 Cyclobenzaprine HCl (Cyclobenzaprine HCl) 5 Mg Tablet, 10 MG PO BID PRN for MUSCLE SPASMS, (Reported) Entered as Reported by: ELEANOR CHANCE on 05/18/221101 Cyclobenzaprine HCl (Cyclobenzaprine HCl) 5 Mg Tablet, 10 MG PO HS, (Reported) Entered as Reported by: ELEANOR CHANCE on 05/18/221101 Lisinopril (Lisinopril) 40 Mg Tablet, 40 MG PO DAILY, (Reported) Entered as Reported by: ELEANOR CHANCE on 05/18/221101 Metoprolol Succinate (Metoprolol Succinate) 50 Mg Tab.er.24h, 50 MG PO DAILY Prescribed by: JAMIE ALMAZAN on 05/18/221151 Pantoprazole Sodium (Pantoprazole Sodium) 40 Mg Tablet.dr, 40 MG PO DAILY Prescribed by: JAMIE ALMAZAN on 05/18/221151 Review of Systems Review of Systems Constitutional: see HPI, chills, dizziness, malaise, weakness, weight loss EENTM: other (DRY MOUTH) Respiratory: see HPI, cough, dyspnea on exertion, short of breath Cardiovascular: see HPI, chest pain; No edema, No palpitations, No syncope Gastrointestinal: see HPI; No abdominal pain, No diarrhea; loss of appetite, nausea; No vomiting Genitourinary: no symptoms reported Musculoskeletal: see HPI, back pain, neck pain Skin: no symptoms reported Psychiatric/Neurological: See HPI Hematologic/Lymphatic: No Symptoms Reported Immunological/Allergic: no symptoms reported Past Lfraics-Jxanhz-Aeweyc Hx Patient Social History Tobacco Use?: No Smoking Status: Never a Smoker Smokeless Tobacco Frequency: Never a User Use of E-Cig and/or Vaping Geronimo: Never a User Substance use?: No Alcohol Use?: No Immunizations Up To Date First/Initial COVID19 Vaccinat: 11/30 Second COVID19 Vaccination Steve: X3 Third COVID19 Vaccination Date: X3 Past Medical History Surgery/Hospitalization HX: HTN. HLD. 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, Menopausal Genitourinary: No Gastrointestinal: Yes Gastroesophageal Reflux, Hiatal Hernia Musculoskeletal: Yes Degenerate Disk Disease, Osteoporosis, Chronic Back Pain Endocrine: No HEENT: No Cancer: Yes Breast Did You Recieve Any Treatments: Yes What Type of Treatment Did You: Chemotherapy, Radiation, Surgical Intervention LEFT MASTECTOMY --WITH RECURRENCE IN 2011 Family Medical History CAD Under 55 Years Old Physical Exam Vital Signs Vital Signs - First Documented 12/30/22 16:57 Temp 37.3 Pulse 96 Resp 16 B/P (MAP) 141/91 (108) Pulse Ox 95 Capillary Refill : Height, Weight, BMI Height: '" Weight: lbs. oz. kg; 17.00 BMI Method: General Appearance: No Apparent Distress, WD/WN, Thin HEENT: PERRL/EOMI Neck: Full Range of Motion, Normal Inspection, Non Tender, Supple Respiratory: Normal Breath Sounds, No Accessory Muscle Use, No Respiratory Distress Cardiovascular: Regular Rate, Rhythm, No Edema, No JVD, No Murmur, Normal P eripheral Pulses Gastrointestinal: Non Tender, Soft Back: No CVA Tenderness Extremity: Normal Inspection Neurologic/Psychiatric: Alert, Oriented x3, No Motor/Sensory Deficits, Normal Mood/Affect, printmaker II-XII Norm as Tested Skin: Normal Color, Warm/Dry Progress/Results/Core Measures Suspected Sepsis SIRS Temperature: Pulse: 96 Respiratory Rate: 16 Laboratory Tests 12/30/22 17:32: White Blood Count 13.7H Blood Pressure 141 /91 Mean: 108 Laboratory Tests 12/30/22 17:32: Creatinine 1.14, Platelet Count 547H, Total Bilirubin 0.8 12/30/22 18:05: INR Comment 1.1 Results/Orders Lab Results Laboratory Tests Test 12/30/22 17:32 12/30/22 17:34 12/30/22 17:58 12/30/22 18:05 Range/Units White Blood Count 13.7 H 4.3-11.0 10^3/uL Red Blood Count 3.24 L 3.80-5.11 10^6/uL Hemoglobin 8.8 L 11.5-16.0 g/dL Hematocrit 28 L 35-52 % Mean Corpuscular Volume 86 80-99 fL Mean Corpuscular Hemoglobin 27 25-34 pg Mean Corpuscular Hemoglobin Concent 32 32-36 g/dL Red Cell Distribution Width 14.3 10.0-14.5 % Platelet Count 547 H 130-400 10^3/uL Mean Platelet Volume 9.3 9.0-12.2 fL Immature Granulocyte % (Auto) 1 % Neutrophils (%) (Auto) 81 H 42-75 % Lymphocytes (%) (Auto) 8 L 12-44 % Monocytes (%) (Auto) 10 0-12 % Eosinophils (%) (Auto) 1 0-10 % Basophils (%) (Auto) 0 0-10 % Neutrophils # (Auto) 11.1 H 1.8-7.8 10^3/uL Lymphocytes # (Auto) 1.0 1.0-4.0 10^3/uL Monocytes # (Auto) 1.3 H 0.0-1.0 10^3/uL Eosinophils # (Auto) 0.1 0.0-0.3 10^3/uL Basophils # (Auto) 0.1 0.0-0.1 10^3/uL Immature Granulocyte # (Auto) 0.1 0.0-0.1 10^3/uL Neutrophils % (Manual) 78 % Lymphocytes % (Manual) 10 % Monocytes % (Manual) 9 % Eosinophils % (Manual) 2 % Basophils % (Manual) 0 % Band Neutrophils 1 % Microcytosis SLIGHT Sodium Level 136 135-145 MMOL/L Potassium Level 4.0 3.6-5.0 MMOL/L Chloride Level 104 98-107 MMOL/L Carbon Dioxide Level 19 L 21-32 MMOL/L Anion Gap 13 5-14 MMOL/L Blood Urea Nitrogen 28 H 7-18 MG/DL Creatinine 1.14 0.60-1.30 MG/DL Estimat Glomerular Filtration Rate 49 BUN/Creatinine Ratio 25 Glucose Level 91 70-105 MG/DL Calcium Level 9.6 8.5-10.1 MG/DL Corrected Calcium 10.2 H 8.5-10.1 MG/DL Magnesium Level 1.6 1.6-2.4 MG/DL Total Bilirubin 0.8 0.1-1.0 MG/DL Aspartate Amino Transf (AST/SGOT) 13 5-34 U/L Alanine Aminotransferase (ALT/SGPT) 15 0-55 U/L Alkaline Phosphatase 231 H 40-136 U/L Total Protein 7.3 6.4-8.2 GM/DL Albumin 3.2 3.2-4.5 GM/DL Urine Color YELLOW Urine Clarity CLEAR Urine pH 5.0 5-9 Urine Specific Broseley 1.025 H 1.016-1.022 Urine Protein 2+ H NEGATIVE Urine Glucose (UA) NEGATIVE NEGATIVE Urine Ketones TRACE H NEGATIVE Urine Nitrite NEGATIVE NEGATIVE Urine Bilirubin 1+ H NEGATIVE Urine Urobilinogen 1.0 < = 1.0 MG/DL Urine Leukocyte Esterase TRACE H NEGATIVE Urine RBC (Auto) NEGATIVE NEGATIVE Urine RBC NONE /HPF Urine WBC 5-10 H /HPF Urine Squamous Epithelial Cells 2-5 /HPF Urine Crystals NONE /LPF Urine Bacteria MODERATE H /HPF Urine Casts NONE /LPF Urine Mucus NEGATIVE /LPF Urine Culture Indicated YES TSH [place] Testing 0.40 0.35-4.94 UIU/ML Erythrocyte Sedimentation Rate > 140 H 0-30 MM/HR Prothrombin Time 15.0 H 12.2-14.7 SEC INR Comment 1.1 0.8-1.4 Activated Partial Thromboplast Time 49 H 24-35 SEC Total Creatine Kinase 10 L 29-168 U/L Creatine Kinase MB 0.7 <6.6 NG/ML Myoglobin 44.0 10.0-92.0 NG/ML Troponin I < 0.028 <0.028 NG/ML C-Reactive Protein High Sensitivity 19.18 H 0.00-0.50 MG/DL B-Type Natriuretic Peptide 102.3 H <100.0 PG/ML Amylase Level 21 L 25-125 U/L Lipase 18 8-78 U/L My Orders Araceli - MOHSEN FRAIRE DO Thyroid Analyzer (12/30/22 17:56) Ekg Tracing (12/30/22 18:01) Monitor-Rhythm Ecg Trace Only (12/30/22 18:01) Ct Head/Cervical Spine Wo (12/30/22 18:01) Chest Pa/Lat (2 View) (12/30/22 18:01) Amylase (12/30/22 18:01) Bnp Michael (12/30/22 18:01) Creatine Kinase (12/30/22 18:) Creatine Kinase Mb (12/30/22 18:01) Hs C Reactive Protein (12/30/22 18:01) Lipase (12/30/22 18:01) Protime With Inr (12/30/22 18:) Partial Thromboplastin Time (12/30/22 18:01) Erythrocyte Sedimentation Rate (12/30/22 18:01) Myoglobin Serum (12/30/22 18:01) Troponin I [place] (12/30/22 18:01) Covid 19 Inhouse Test (12/30/22 18:01) Influenza A And B By Pcr (12/30/22 18:01) Ed Iv/Invasive Line Start (12/30/22 18:27) Lactated Ringers 1,000 Ml (Lactated Ring (12/30/22 18:30) Ceftriaxone Iv/Im (Ceftriaxone Iv/Im) (12/30/22 18:27) Ct Carlie Chest/Noang Abd-Pelv W (12/30/22 18:46) Ed Iv/Invasive Line Start (12/30/22 18:47) Lactated Ringers 1,000 Ml (Lactated Ring (12/30/22 19:00) Azithromycin Injection (Azithromycin Inj (12/30/22 19:00) Iohexol Injection (Omnipaque 350 Mg/Ml 1 (12/30/22 19:15) Received Contrast (Hold Metformin- Contr (12/30/22 19:15) Ns (Ivpb) 100 Ml (Sodium Chloride 0.9% 1 (12/30/22 19:15) Vital Signs/I&O 12/30/22 16:57 Temp 37.3 Pulse 96 Resp 16 B/P (MAP) 141/91 (108) Pulse Ox 95 Capillary Refill : Blood Pressure Mean: 108 Departure Communication (Admissions) 1855--SPOKE WITH DR. ALMAZAN, HOSPITALIST FOR [facility]. ACCEPTS PT 185--SPOKE WITH DR. TERRELL, [facility]-RESIDENT ACCOUNT EXECUTIVE TRAINEE. SHE WILL DO ADMIT ORDERS Impression Primary Impression: UTI (urinary tract infection) Additional Impressions: Pneumonia Weight loss, unintentional HX: breast cancer Anemia Dehydration Disposition: ADMITTED INPATIENT Condition: Stable Departure-Patient Inst. Referrals: ELEANOR ALDRICH DO (PCP/Family) Primary Care Physician MOHSEN FRAIRE DO Dec 30, 2022 18:09
[2022-12-30 18:15] LABS: AMYLASE 21 U/L (25-125); INR 1.1 (0.8-1.4)
[2022-12-30 18:16] LABS: BAND NEUTROPHILS 1 %; LYMPHOCYTES % (MANUAL) 10 %; MONOCYTES % (MANUAL) 9 %; NEUTROPHILS % (MANUAL) 78 %
[2022-12-30 18:17] LABS: BASOPHILS % (MANUAL) 0 %; EOSINOPHILS % (MANUAL) 2 %; MICROCYTOSIS SLIGHT
[2022-12-30 18:24] LABS: CREATINE KINASE 10 U/L (29-168); LIPASE 18 U/L (8-78)
[2022-12-30] MEDS ORDERED: cefTRIAXone IV/IM 1,000 MG in NS (IVPB) 50 ML 50 ML IV STA (18:27)
[2022-12-30 18:30] LABS: CREATINE KINASE MB 0.7 NG/ML (<6.6)
[2022-12-30] MEDS ORDERED: LACTATED RINGERS 1,000 ML 1,000 ML IV ONE ×2 (18:30→19:00)
--- NOTE | 2022-12-30 18:35 | Diagnostic Imaging Report ---
PROCEDURE: CT head and CT cervical spine without contrast. TECHNIQUE: Multiple contiguous axial images were obtained through the brain and cervical spine without the use of intravenous contrast. Sagittal and coronal reformations through the cervical spine were then performed. Auto Exposure Controls were utilized during the CT exam to meet ALARA standards for radiation dose reduction. INDICATION: Neck injury from a fall, left arm paresthesia CTA HEAD: The ventricles are normal in size, shape and position. There are no masses or hemorrhages. There are no extra-axial fluid collections. There are some inflammatory change in the maxillary sinuses. IMPRESSION: Inflammatory sinus changes. No acute intracranial abnormalities CT CERVICAL SPINE: There is a hyperlordotic curvature the cervical spine. Alignment is normal. There is disc space narrowing at C3-C4, C4-C5 and C5-C6. Posterior elements are intact. There is no fracture or prevertebral soft tissue swelling. Odontoid is intact. Atlantoaxial and basicervical relationships are normal. IMPRESSION: Mild degenerative changes. No acute abnormality seen. Dictated by: Dictated on workstation # [id number]
--- NOTE | 2022-12-30 18:36 | Diagnostic Imaging Report ---
Indication: Substernal chest pain, shortness of breath There is a large hiatal hernia. There is some left basal infiltrate or atelectasis. There are some patchy right upper lobe infiltrate or atelectasis. These appear to be new since 10/27/2022. IMPRESSION: Patchy right upper lobe and left basilar infiltrate suspicious for pneumonia. Patient has a large hiatal hernia. Dictated by: Dictated on workstation # [id number]
[2022-12-30] MEDS ORDERED: AZITHROMYCIN INJECTION 500 MG in NS (IVPB) 250 ML 250 ML IV ONE (19:00)
[2022-12-30] MEDS ORDERED: HOLD METFORMIN - RECEIVED CONTRAST 20 ML VIAL IV SCH (19:15)
[2022-12-30] MEDS ORDERED: IOHEXOL 350 MG/ML 100 ML (OMNIPAQUE 350) VIAL IV ONE (19:15)
[2022-12-30] MEDS ORDERED: NS 100 ML (IVPB) BAG IV ONE (19:15)
--- NOTE | 2022-12-30 19:17 | History & Physical-Hospitalist ---
CARA TERRELL MD,RESIDENT 12/30/221916: History of Present Illness HPI/Chief Complaint CC: Have not felt good in 4 mo HPI: Pt is a 77 yo female with a medical history significant for HTN, COPD (second- hand smoke), hiatal hernia, breast CA ([id number]; s/p chemo & radiation, L mastectomy) who presents to the ED for feeling generally unwell for the last 4 months. She reports an unexpected weight loss, decreased PO intake, SOB, cough, dysuria and increased urinary frequency. She also reports new onset chest pressure more to the left with onset after her CTA scan this evening. She denies N/V/D, abdominal pain, blurry vision, loss of balance. Will admit for further management. Source: patient Date Seen 12/30/22 Time Seen by a Provider: 19:11 Attending Physician Paras Hollis DO PCP Admitting Physician: Attending Physician: Referring Physician Date of Admission Home Medications & Allergies Home Medications Reviewed patient Home Medication Reconciliation performed by pharmacy medication reconciliations program technician and/or nursing. Patients Allergies have been reviewed. Allergies Allergies Coded Allergies No Known Drug Allergies (Unverified04/14/21) Past Qqebgly-Igksgn-Lgrwyc Hx Patient Social History Tobacco Use?: No Smoking Status: Never a Smoker Smokeless Tobacco Frequency: Never a User Use of E-Cig and/or Vaping Geronimo: Never a User Substance use?: No Alcohol Use?: No Immunizations Up To Date First/Initial COVID19 Vaccinat: 11/30 Second COVID19 Vaccination Steve: X3 Tetanus Booster (TDap): Less Than 5 Years Hepatitis A: No Hepatitis B: No Current Status Primary Language: Lithuanian Preferred Spoken Language: Lithuanian Past Medical History Surgeries: Bladder Surgery, Breast, Hysterectomy, Orthopedic, Rectal Hypertension 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 History: Hysterectomy, Menopausal Gastroesophageal Reflux, Hiatal Hernia Degenerate Disk Disease, Osteoporosis, Chronic Back Pain Breast Did You Recieve Any Treatments: Yes What Type of Treatment Did You: Chemotherapy, Radiation, Surgical Intervention LEFT MASTECTOMY --WITH RECURRENCE IN 2011 Family Medical History CAD Under 55 Years Old Review of Systems Constitutional: malaise, weakness, weight loss EENTM: no symptoms reported Respiratory: cough, short of breath Cardiovascular: chest pain Gastrointestinal: no symptoms reported Genitourinary: dysuria, frequency Musculoskeletal: muscle weakness Skin: no symptoms reported Psychiatric/Neurological: No Symptoms Reported Physical Exam Physical Exam Vital Signs Vital Signs - First Documented 12/30/22 16:57 Temp 37.3 Pulse 96 Resp 16 B/P (MAP) 141/91 (108) Pulse Ox 95 Capillary Refill : Height, Weight, BMI Height: '" Weight: lbs. oz. kg; 17.00 BMI Method: General Appearance: No Apparent Distress Eyes: Bilateral Eye EOMI Respiratory: No Accessory Muscle Use, No Respiratory Distress, Other (coarse breath sounds) Cardiovascular: No Edema, No Murmur, Normal Peripheral Pulses, Tachycardia Gastrointestinal: Non Tender, Soft Back: No CVA Tenderness, No Vertebral Tenderness Extremity: Non Tender, No Pedal Edema Neurologic/Psychiatric: Alert, Oriented x3, Normal Mood/Affect Skin: Warm/Dry Lymphatic: No Adenopathy Results Results/Procedures Labs Laboratory Tests 12/30/22 17:32 Patient resulted labs reviewed. Assessment/Plan Admission Diagnosis Pneumonia, UTI Admission Status: Inpatient Order (span 2 midnights) Reason for Inpatient Admission: Pneumonia, UTI Diagnosis/Problems Diagnosis/Problems (1) Pneumonia Assessment & Plan: CXR: IMPRESSION: Patchy right upper lobe and left basilar infiltrate suspicious for pneumonia. Patient has a large hiatal hernia. CTA: IMPRESSION: Bilateral pulmonary infiltrates suspicious for pneumonia. Right upper lobe apical nodule concerning for developing neoplasm. Short interval follow-up recommended. There is a large hiatal hernia present. 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 We will maintain IV antibiotics. Source: patient Exam Limitations: no limitations Past Nrvjmad-Gtqfcq-Bzqcwk Hx Patient Social History Marrital Status: single Employed/Student: retired Smoking Status: Never a Smoker Past Medical History High Cholesterol, Hypertension Breast Did You Recieve Any Treatments: Yes What Type of Treatment Did You: Chemotherapy, Radiation, Surgical Intervention Review of Systems Constitutional: see HPI, dizziness, malaise, weakness, weight loss Respiratory: cough Physical Exam Physical Exam General Appearance: No Apparent Distress, Chronically ill Respiratory: No Accessory Muscle Use, No Respiratory Distress, Decreased Breath Sounds Cardiovascular: Regular Rate, Rhythm Neurologic/Psychiatric: Alert, Oriented x3, No Motor/Sensory Deficits, D epressed Affect Assessment/Plan Admission Diagnosis Assessment: Pneumonia UTI Failure to thrive History of breast cancer COPD Hypertension Plan: IV antibiotics Oxygen Supportive care Admission Status: Inpatient Order (span 2 midnights) Reason for Inpatient Admission: Pneumonia with UTI CARA TERRELL MD,RESIDENT Dec 30, 2022 19:17 JAMIE ALMAZAN DO Dec 31, 2022 15:40
--- NOTE | 2022-12-30 19:30 | Diagnostic Imaging Report ---
INDICATION: DYSPNEA, CP, ABNORMAL CXR CTA chest, abdomen and pelvis Thin axial sections through the chest, abdomen and pelvis are obtained following intravenous contrast bolus. Multiplanar MIP images were reconstructed and reviewed. All CT scans use one or more of the following dose optimizing techniques: automated exposure control, MA and/or KvP adjustment based on patient size and exam type or iterative reconstruction. INDICATION: Shortness of breath, substernal chest pain There is 7 mm pulmonary nodule at the right lung apex. This is new since 04/14/2021 and warrants close follow-up. There is some infiltrate present in the posterior segment of the right upper lobe. This is also new from the prior study. There is a large hiatal hernia. There is some infiltrate in the lateral basal segment left lower lobe with peribronchial thickening. No pulmonary emboli. There is no aortic dissection or aneurysm. There is coronary calcific arteriosclerosis. Liver appears normal. Gallbladder is normal. Portal vein is patent. Common duct is not dilated. Pancreas appears atrophied. Spleen is not enlarged. Adrenals are normal. Kidneys appear normal. Some calcific atherosclerosis of aorta but no aneurysm. Small bowel is not dilated. Uterus appears to be surgically absent. Urinary bladder is normal. There is no evidence for appendicitis. IMPRESSION: Bilateral pulmonary infiltrates suspicious for pneumonia. Right upper lobe apical nodule concerning for developing neoplasm. Short interval follow-up recommended. There is a large hiatal hernia present. Dictated by: Dictated on workstation # [id number]
[2022-12-30] MEDS ORDERED: RT-ALBUTEROL SULF 2.5 MG/3 ML PRE-MIX VIAL IH PRN (20:15)
[2022-12-30] MEDS ORDERED: CALCIUM CARBONATE 500 MG CHEW TABLET PO PRN (21:15)
[2022-12-30] MEDS ORDERED: ONDANSETRON INJECTION 4 MG/2 ML (SDV) IV PRN (21:15)
[2022-12-30] MEDS ORDERED: ONDANSETRON 4 MG ORAL DISSOLVE TABLET PO PRN (21:15)
[2022-12-30] MEDS ORDERED: BISACODYL 10 MG SUPPOSITORY PR PRN (21:15)
[2022-12-30] MEDS ORDERED: ACETAMINOPHEN 325 MG TABLET PO PRN (21:15)
[2022-12-30] MEDS ORDERED: MILK OF MAGNESIA 400 MG/5 ML 30 ML UDC PO PRN (21:15)
[2022-12-30] MEDS ORDERED: ANTACID SUSPENSION 30 ML UDC PO PRN (21:15)
[2022-12-30] MEDS ORDERED: diphenhydrAMINE INJ 50 MG/ML VIAL IVP PRN (21:15)
[2022-12-30] MEDS ORDERED: MELATONIN 3 MG TABLET PO PRN (21:15)
[2022-12-30] MEDS ORDERED: LACTULOSE SYRUP 10GM/15ML 30ML UDC PO PRN (21:15)
[2022-12-30] MEDS ORDERED: diphenhydrAMINE 25 MG TABLET PO PRN (21:15)
[2022-12-30 21:33] VITALS: BP 138/78
[2022-12-30] MEDS: RT-Ipratropium/Albuterol NEB 3 ML VIAL INH SCH (21:46)
[2022-12-30] MEDS: CYCLOBENZAPRINE 10 MG TABLET PO SCH (21:53)
[2022-12-30] MEDS: ENOXAPARIN 30 MG/0.3 ML SYRINGE SC SCH (21:54)
[2022-12-31] VITALS (7 sets, daily range): BP systolic 125–149; BP diastolic 67–83
[2022-12-31] MEDS: ACETAMINOPHEN 500 MG TABLET PO SCH ×4 (00:05→18:01)
[2022-12-31] MEDS: RT-Ipratropium/Albuterol NEB 3 ML VIAL INH SCH ×6 (02:26→22:11)
[2022-12-31 06:11] LABS: BASOPHILS # (AUTO) 0.1 10^3/uL (0.0-0.1); BASOPHILS % (AUTO) 1 % (0-10); EOSINOPHILS # (AUTO) 0.2 10^3/uL (0.0-0.3); EOSINOPHILS % (AUTO) 1 % (0-10); HEMATOCRIT 26 % (35-52); HEMOGLOBIN 8.1 g/dL (11.5-16.0); LYMPHOCYTES # (AUTO) 1.6 10^3/uL (1.0-4.0); LYMPHOCYTES % (AUTO) 14 % (12-44); MEAN CORPUSCULAR HEMOGLOBIN 27 pg (25-34); MEAN CORPUSCULAR HGB CONC 31 g/dL (32-36); MEAN CORPUSCULAR VOLUME 85 fL (80-99); MEAN PLATELET VOLUME 9.5 fL (9.0-12.2); MONOCYTES # (AUTO) 1.2 10^3/uL (0.0-1.0); MONOCYTES % (AUTO) 11 % (0-12); NEUTROPHILS # (AUTO) 7.8 10^3/uL (1.8-7.8); NEUTROPHILS % (AUTO) 72 % (42-75); PLATELET COUNT 527 10^3/uL (130-400); WHITE BLOOD COUNT 10.9 10^3/uL (4.3-11.0)
--- NOTE | 2022-12-31 06:19 | Progress Note - Hospitalist ---
Subjective HPI/CC On Admission Date Seen by Provider: Dec 31, 2022 Time Seen by Provider: 09:00 CC: Have not felt good in 4 mo HPI: Pt is a 77 yo female with a medical history significant for HTN, COPD (second- hand smoke), hiatal hernia, breast CA ([phone]; s/p chemo & radiation, L mastectomy) who presents to the ED for feeling generally unwell for the last 4 months. She reports an unexpected weight loss, decreased PO intake, SOB, cough, dysuria and increased urinary frequency. She also reports new onset chest pressure more to the left with onset after her CTA scan this evening. She denies N/V/D, abdominal pain, blurry vision, loss of balance. Will admit for further management. Subjective/Events-last exam Patient doing a lot better Remains on oxygen IV antibiotics maintained Urine culture pending Review of Systems General: Fatigue Objective Exam Vital Signs Vital Signs Date Time Temp Pulse Resp B/P (MAP) Pulse Ox O2 Delivery O2 Flow Rate FiO2 12/31/22 15:23 36.3 85 18 149/74 (99) 97 Nasal Cannula 2.00 12/30/22 21:30 21 Capillary Refill : General Appearance: No Apparent Distress, WD/WN, Chronically ill Respiratory: Lungs Clear, Normal Breath Sounds, Decreased Breath Sounds Cardiovascular: Regular Rate, Rhythm Neurologic/Psychiatric: Alert, Oriented x3 Results/Procedures Lab Laboratory Tests 12/30/22 17:32 12/31/22 05:28 Patient resulted labs reviewed. Assessment/Plan Assessment and Plan Assess & Plan/Chief Complaint Assessment: Pneumonia Hypertension UTI History of breast cancer Frail status Low BMI of 17 Plan: IV antibiotics Supportive care JAMIE ALMAZAN DO Dec 31, 2022 06:19
[2022-12-31 06:25] LABS: ALBUMIN 2.7 GM/DL (3.2-4.5)
[2022-12-31 06:26] LABS: CALCIUM 8.9 MG/DL (8.5-10.1)
[2022-12-31 06:28] LABS: TOTAL PROTEIN 6.2 GM/DL (6.4-8.2)
[2022-12-31 06:29] LABS: BILIRUBIN,TOTAL 0.3 MG/DL (0.1-1.0)
[2022-12-31 06:31] LABS: CREATININE SERUM 0.9 MG/DL (0.60-1.30)
[2022-12-31] MEDS: DOCUSATE SODIUM 100 MG CAPSULE PO SCH ×2 (09:10→20:02)
[2022-12-31] MEDS: SENNOSIDES 8.6 MG TABLET PO SCH ×2 (09:10→20:02)
[2022-12-31] MEDS: cefTRIAXone IV/IM 1,000 MG in NS (IVPB) 50 ML 50 ML IV SCH (17:19)
[2022-12-31] MEDS ORDERED: AZITHROMYCIN INJECTION 250 MG in NS (IVPB) 250 ML 250 ML IV SCH (18:00)
[2022-12-31] MEDS: CYCLOBENZAPRINE 10 MG TABLET PO SCH (20:02)
[2022-12-31] MEDS: ENOXAPARIN 30 MG/0.3 ML SYRINGE SC SCH (20:02)
[2023-01-01] MEDS: ACETAMINOPHEN 500 MG TABLET PO SCH ×5 (00:29→23:57)
[2023-01-01] MEDS: RT-Ipratropium/Albuterol NEB 3 ML VIAL INH SCH ×3 (02:21→11:10)
[2023-01-01 03:27] VITALS: BP 145/64
[2023-01-01 05:30] LABS: BASOPHILS % (AUTO) 0 % (0-10); EOSINOPHILS # (AUTO) 0.2 10^3/uL (0.0-0.3); EOSINOPHILS % (AUTO) 2 % (0-10); HEMATOCRIT 27 % (35-52); HEMOGLOBIN 8.5 g/dL (11.5-16.0); LYMPHOCYTES % (AUTO) 10 % (12-44); MEAN CORPUSCULAR HEMOGLOBIN 27 pg (25-34); MEAN CORPUSCULAR HGB CONC 32 g/dL (32-36); MEAN CORPUSCULAR VOLUME 84 fL (80-99); MEAN PLATELET VOLUME 9.1 fL (9.0-12.2); MONOCYTES # (AUTO) 0.8 10^3/uL (0.0-1.0); MONOCYTES % (AUTO) 8 % (0-12); NEUTROPHILS # (AUTO) 7.8 10^3/uL (1.8-7.8); NEUTROPHILS % (AUTO) 78 % (42-75); PLATELET COUNT 583 10^3/uL (130-400); WHITE BLOOD COUNT 10.1 10^3/uL (4.3-11.0)
[2023-01-01 05:42] LABS: ALBUMIN 2.9 GM/DL (3.2-4.5)
[2023-01-01 05:44] LABS: TOTAL PROTEIN 6.5 GM/DL (6.4-8.2)
[2023-01-01 05:46] LABS: BILIRUBIN,TOTAL 0.2 MG/DL (0.1-1.0)
[2023-01-01 05:48] LABS: CREATININE SERUM 0.78 MG/DL (0.60-1.30)
[2023-01-01 07:24] VITALS: BP 169/88
[2023-01-01] MEDS: SENNOSIDES 8.6 MG TABLET PO SCH ×2 (08:40→20:39)
[2023-01-01] MEDS: DOCUSATE SODIUM 100 MG CAPSULE PO SCH ×2 (08:40→20:39)
--- NOTE | 2023-01-01 08:56 | Progress Note ---
CARA TERRELL MD,RESIDENT 01/01/23 0856: Subjective HPI/CC On Admission Chief complaint: Unwell with pneumonia HPI:This is a 77-year-old female with a history of COPD and hypertension and breast cancer who presented to the ER with feeling unwell was found to have a pneumonia and UTI. We will maintain IV antibiotics. Subjective/Events-last exam No acute events overnight. Pt reports feeling improved from yesterday. She says her appetite is still not great, brought on by nausea from using the incentive spirometer, however she reports that the nausea goes away after a few minutes rest with normal breathing. She denies any UTI symptoms today. She states that she does not feel 100% yet and would like to get a little stronger before going home. Objective Exam Vital Signs Vital Signs Date Time Temp Pulse Resp B/P (MAP) Pulse Ox O2 Delivery O2 Flow Rate FiO2 01/01/23 07:24 36.3 89 16 169/88 (115) 97 Nasal Cannula 1.00 12/30/22 21:30 21 Capillary Refill : General Appearance: No Apparent Distress Neck: Full Range of Motion Respiratory: No Accessory Muscle Use, No Respiratory Distress, Crackles Cardiovascular: Regular Rate, Rhythm Gastrointestinal: Non Tender, Soft Extremity: No Pedal Edema Neurologic/Psychiatric: Alert, Oriented x3, Normal Mood/Affect Skin: Warm/Dry Results/Procedures Lab Laboratory Tests 01/01/23 05:14 Patient resulted labs reviewed. Assessment/Plan Assessment and Plan Assess & Plan/Chief Complaint CC: weakness Sepsis 2/2 penumonia and UTI Diagnosis/Problems Diagnosis/Problems (1) Pneumonia Assessment & Plan: CXR: IMPRESSION: Patchy right upper lobe and left basilar infiltrate suspicious for pneumonia. Patient has a large hiatal hernia. CTA: IMPRESSION: Bilateral pulmonary infiltrates suspicious for pneumonia. Right upper lobe apical nodule concerning for developing neoplasm. Short interval follow-up recommended. There is a large hiatal hernia present. PLAN: Ceftraixone + azithromycin for likely CAP Supplemental O2 as needed F/u outpatient for suspicious lung nodule (2) UTI (urinary tract infection) Assessment & Plan: UA: LE trace, WBCs, moderate bacteria PLAN: Ceftriaxone UCx: E. coli, sensitivities pending (3) Sepsis Status: Resolved Assessment & Plan: 2/2 PNA and UTI ESR and CRP elevated Leukocytosis PLAN: IVF Abx Daily CBC trend WBC Resolution Date/Time: 01/01/23 @ 08:56 (4) Chest pressure Status: Resolved Assessment & Plan: Acute onset while in the ED Mid-left sided pressure, persistent PLAN: Trend troponin EKG unremarkable Resolution Date/Time: 01/01/23 @ 08:56 (5) HTN (hypertension) Assessment & Plan: PLAN: Restart PERMIT AGENT meds (6) HX: breast cancer Status: Acute Assessment & Plan: C/o unintentional weight loss In remission since 2011 JONATHON SUTHERLAND MD 01/01/23 1039: Supervisory-Addendum Brief Supervisory Addendum I personally performed the watters portions of the visit, discussed case with resident and concur with resident documentation of history, physical exam, assessment and treatment plan unless otherwise noted. Problem List PNA Acute Respiratory failure with hypoxia UTI Sepsis HTN Pulmonary Nodule h/o Breast cancer CARA TERRELL MD,RESIDENT Jan 01, 2023 08:56 JONATHON SUTHERLAND MD Jan 01, 2023 10:39
--- NOTE | 2023-01-01 11:04 | Physical Therapy Evaluation ---
PT Evaluation-General Medical Diagnosis Admission Date Dec 30, 2022 at 20:24 Medical Diagnosis: pneumonia Onset Date: Dec 30, 2022 Therapy Diagnosis Therapy Diagnosis: debility Precautions Precautions/Isolations: Standard Precautions Weight Bear Status Right Lower Extremity: Right Full Weight Bearing Left Lower Extremity: Left Full Weight Bearing Referral Physician: Emmanuel Reason for Referral: Evaluation/Treatment Medical History Pertinent Medical History: Breast CA S/P Mastectomy, COPD, GERD, HTN Current History ER secondary to weight loss (30# in 3 months) Reviewed History: Yes Social History Home: [facility] Current Living Status: Other Family (7 other family members) Entry Into Home: Stairs With Railing PT Steps Into Home: 2 Prior Prior Level of Function SCALE: Activities may be completed with or without assistive devices. 1-Fskzmaxllg-mkmgcno completes the activity by him/herself with no assistance from a helper. 5-Set-up or Clean-up Assistance-helper sets up or cleans up; patient completes activity. [place] assists only prior to or following the activity. 4-Supervision or Touching Assistance-helper provides verbal cues and/or touching/steadying and/or contact guard assistance as patient completes activity. Assistance may be provided throughout the activity or intermittently. 3-Partial/Moderate Assistance-helper does LESS THAN HALF the effort. [place] lifts, holds or supports trunk or limbs, but provides less than half the effort. 2-Substantial/Maximal Assistance-helper does MORE THAN HALF the effort. [place] lifts or holds trunk or limbs and provides more than half the effort. 8-Uylvhjoyc-azessl does ALL the effort. Patient does none of the effort to complete the activity. Or, the assistance of 2 or more helpers is required for the patient to complete the activity. If activity was not attempted, code reason: 7-Patient Refused. 9-Not Applicable-not attempted and the patient did not perform the activity before the current illness, exacerbation or injury. 10-Not Attempted due to Environmental Limitations-(lack of equipment, weather restraints, etc.). 88-Not Attempted due to Medical Conditions or Safety Concerns. Bed Mobility: 6 Transfers (B,C,W/C): 6 Gait: 6 Stairs: 6 Indoor Mobility (Ambulation): Independent Stairs: Independent Prior Devices Use: None PT Evaluation-Current Subjective Patient agrees to therapy. Objective Patient Orientation: Normal For Age Attachments: Oxygen ROM/Strength ROM Lower Extremities bilateral LE WFL Strength Lower Extremities 4-/5 grossly bilateral LE all planes Integumentary/Posture Bowel Incontinence: No Bladder Incontinence: No Posture kyphotic Neuromuscular (Tone, Coordination, Reflexes) grossly intact Sensory Vision: Functional Hearing: Functional Transfers Sit to Stand (QC): 6 Gait Mode of Locomotion: Walk Anticipated Mode of Locomotion: Walk Walk 10 feet (QC): 6 Walk 50 ft with 2 Turns(QC): 6 Walk 150 ft (QC): 6 Distance: 250' Gait Assistive Device: None Comments/Gait Description safe and functional with no deviation Balance Sitting Static: Normal Sitting Dynamic: Normal Standing Static: Normal Standing Dynamic: Normal Assessment/Needs Patient is currently at independent LOF with all gross motor skills safely and does not require continued skilled PT at this time. Rehab Potential: Fair PT Plan Treatment/Plan Treatment Plan: Discontinue PT Treatment Duration: Jan 01, 2023 Frequency: 1 time per week Estimated Hrs Per Day: .25 hour per day Patient and/or Family Agrees t: Yes Time Time In: 1016 Time Out: 1024 DATE: Jan 01, 2023 Total Billed Treatment Time: 8 Total Billed Treatment [address] [facility] 8 min МАРИНА ALLISON PT Jan 01, 2023 11:04
--- NOTE | 2023-01-01 11:06 | Occupational Therapy Eval ---
OT Evaluation-General/PLF Medical Diagnosis Admission Date Dec 30, 2022 at 20:24 Medical Diagnosis: GENERALIZED WEAKNESS Onset Date: Dec 30, 2022 Therapy Diagnosis Therapy Diagnosis: WEAKNESS Precautions Precautions/Isolations: Standard Precautions Weight Bear Status Weight Bearing Restriction: Full Weight Bearing Referral Referral Reason: Self Care, Evaluation/Treatment Medical History Additional Medical History 77 yo female with a medical history significant for HTN, COPD (second-hand smoke), hiatal hernia, breast CA ([id number]; s/p chemo & radiation, L mastectomy) who presents to the ED for feeling generally unwell for the last 4 months. She reports an unexpected weight loss, decreased PO intake, SOB, cough, dysuria and increased urinary frequency. She also reports new onset chest pressure more to the left with onset after her CTA scan this evening. She denies N/V/D, abdominal pain, blurry vision, loss of balance. Will admit for further management. Reviewed History: Yes Social History Home: Multilevel (does not use upstair) Current Living Status: Other Family (sone, and 5 kids) Entry Into Home: Stairs With Railing Steps Into Home: 5 Steps Inside Home: 13 ADL-Prior Level of Function SCALE: Activities may be completed with or without assistive devices. 3-Eodiiwxaml-rnewdzv completes the activity by him/herself with no assistance from a helper. 5-Set-up or Clean-up Assistance-helper sets up or cleans up; patient completes activity. [place] assists only prior to or following the activity. 4-Supervision or Touching Assistance-helper provides verbal cues and/or touching/steadying and/or contact guard assistance as patient completes activity. Assistance may be provided throughout the activity or intermittently. 3-Partial/Moderate Assistance-helper does LESS THAN HALF the effort. [place] lifts, holds or supports trunk or limbs, but provides less than half the effort. 2-Substantial/Maximal Assistance-helper does MORE THAN HALF the effort. [place] lifts or holds trunk or limbs and provides more than half the effort. 0-Ntctlpvjr-qtfeki does ALL the effort. Patient does none of the effort to complete the activity. Or, the assistance of 2 or more helpers is required for the patient to complete the activity. If activity was not attempted, code reason: 7-Patient Refused. 9-Not Applicable-not attempted and the patient did not perform the activity before the current illness, exacerbation or injury. 10-Not Attempted due to Environmental Limitations-(lack of equipment, weather restraints, etc.). 88-Not Attempted due to Medical Conditions or Safety Concerns. Self Care: Independent Functional Cognition: Independent Drive Self: No (vehicle does not work) OT Current Status Subjective 2 liters of 02, did not use at home, significant weight loss over 3 months. Mental Status/Objective Patient Orientation: Person, Place, Time, Situation Current Glasses/Contacts: Yes Hearing Aids: No Upper Extremity ROM BUE ROM WNLs Upper Extremity Coordination INTACT Upper Extremity Sensation INTACT Upper Extremity Strength WNLS, AGE APPROPRIATE ADL-Treatment ADL-Current SHOWER THIS MORNING. Eating (QC): 6 Oral Hygiene (QC): 6 Shower/Bathe Self (QC): 5 Upper Body Dressing (QC): 6 Lower Body Dressing (QC): 6 On/Off Footwear (QC): 6 Toileting Hygiene (QC): 6 UP IN ROOM W/O ASSISTING DEVICES Education OT Patient Education: Correct positioning, Modified ADL techniques, Progress toward Goal/Update tx plan, Purpose of tx/functional activities, Reviewed precautions, Rehab process, Safety issues, Transfer techniques Teaching Recipient: Patient Teaching Methods: Demonstration, Discussion Response to Teaching: Return Demonstration OT Flatwork Assembler Goals Skilled Nursing Goals 1=Demonstrate adherence to instructed precautions during ADL tasks. 2=Patient will verbalize/demonstrate understanding of assistive devices/modifications for ADL. 3=Patient will improve strength/tolerance for activity to enable patient to perform ADL's. OT Education/Plan Problem List/Assessment Assessment: No Skilled OT Needs ID'd Discharge Recommendations Plan/Recommendations: Discontinue OT Treatment Plan/Plan of Care Treatment,Training & Education: Yes Patient would benefit from OT for education, treatment and training to promote independence in ADL's, mobility, safety and/or upper extremity function for ADL's. Plan of Care: OTHER (OT EVAL ONLY) Treatment Duration: Jan 01, 2023 Frequency: 1 time per week Estimated Hrs Per Day: .25 hour per day Rehab Potential: Good Time Start Time: 10:06 Stop Time: 10:20 DATE: Jan 01, 2023 Total Time Billed (hr/min): 14 Billed Treatment Time EVM 14 MIN МАРИЯ BARTHOLOMEW OT Jan 01, 2023 11:06
[2023-01-01 12:20] VITALS: BP 150/80
[2023-01-01] MEDS ORDERED: ASPI-999 PO (14:11)
[2023-01-01] MEDS ORDERED: LEVO50CA4 PO (14:12)
[2023-01-01] MEDS ORDERED: DOCU100T7 PO (14:13)
[2023-01-01] MEDS ORDERED: ACET-2267 PO (14:13)
[2023-01-01] MEDS ORDERED: FEXO180T84 PO (14:14)
[2023-01-01 16:55] VITALS: BP 153/79
[2023-01-01] MEDS: cefTRIAXone IV/IM 1,000 MG in NS (IVPB) 50 ML 50 ML IV SCH (17:19)
[2023-01-01] MEDS ORDERED: AZITHROMYCIN 250 MG TABLET PO SCH (18:00)
[2023-01-01 19:45] VITALS: BP 167/89
[2023-01-01] MEDS: CYCLOBENZAPRINE 10 MG TABLET PO SCH (20:38)
[2023-01-01] MEDS: ENOXAPARIN 30 MG/0.3 ML SYRINGE SC SCH (20:39)
[2023-01-01 23:57] VITALS: BP 157/87
[2023-01-02 04:48] VITALS: BP 161/91
[2023-01-02 05:27] LABS: BASOPHILS # (AUTO) 0.1 10^3/uL (0.0-0.1); BASOPHILS % (AUTO) 1 % (0-10); EOSINOPHILS # (AUTO) 0.3 10^3/uL (0.0-0.3); EOSINOPHILS % (AUTO) 4 % (0-10); HEMATOCRIT 31 % (35-52); HEMOGLOBIN 9.8 g/dL (11.5-16.0); LYMPHOCYTES # (AUTO) 1.4 10^3/uL (1.0-4.0); LYMPHOCYTES % (AUTO) 19 % (12-44); MEAN CORPUSCULAR HEMOGLOBIN 26 pg (25-34); MEAN CORPUSCULAR HGB CONC 32 g/dL (32-36); MEAN CORPUSCULAR VOLUME 84 fL (80-99); MEAN PLATELET VOLUME 8.9 fL (9.0-12.2); MONOCYTES # (AUTO) 0.5 10^3/uL (0.0-1.0); MONOCYTES % (AUTO) 7 % (0-12); NEUTROPHILS % (AUTO) 68 % (42-75); PLATELET COUNT 730 10^3/uL (130-400); WHITE BLOOD COUNT 7.3 10^3/uL (4.3-11.0)
[2023-01-02 05:43] LABS: ALBUMIN 2.8 GM/DL (3.2-4.5); POTASSIUM 4.4 MMOL/L (3.6-5.0)
[2023-01-02 05:44] LABS: CALCIUM 9.1 MG/DL (8.5-10.1)
[2023-01-02 05:45] LABS: TOTAL PROTEIN 6.8 GM/DL (6.4-8.2)
[2023-01-02 05:47] LABS: BILIRUBIN,TOTAL 0.3 MG/DL (0.1-1.0)
[2023-01-02 05:49] LABS: CREATININE SERUM 0.75 MG/DL (0.60-1.30)
[2023-01-02] MEDS: ACETAMINOPHEN 500 MG TABLET PO SCH ×2 (05:53→12:00)
[2023-01-02 07:22] VITALS: BP 167/84
[2023-01-02] MEDS ORDERED: CEFD300C3 PO (08:03)
[2023-01-02] MEDS ORDERED: AZIT250T12 PO (08:03)
--- NOTE | 2023-01-02 08:08 | Discharge Summary ---
CARA TERRELL MD,RESIDENT 01/02/23 0808: Discharge Summary Hospital Course Problems/Diagnosis: (1) Pneumonia (2) Sepsis Status: Resolved Resolution Date/Time: 01/01/23 @ 08:56 (3) UTI (urinary tract infection) (4) Weight loss, unintentional Status: Acute (5) HX: breast cancer Status: Acute (6) Anemia Status: Acute Hospital Course Date of Admission: Dec 30, 2022 at 20:24 Admission Diagnosis : Family Physician/Provider: Paras Hollis DO Date of Discharge: 01/02/23 Discharge Diagnosis: Pneumonia, UTI Hospital Course: Pt admitted for PNA and UTI, started on appropriate abx therapy. Originally required O2 supplementation, stable on RA on 01/02. CT chest suspicious nodule, will schedule repeat chest CT in 4 weeks. Pt stable for discharge on 01/02 with close follow-up with Dr. Hollis. Pt sent home with azithromycin and cefdinir for pneumonia and UTI. Will also start iron therapy for iron-deficiency anemia. Labs and Pending Lab Test: Laboratory Tests 01/02/23 05:21: White Blood Count 7.3, Red Blood Count 3.72L, Hemoglobin 9.8L, Hematocrit 31L, Mean Corpuscular Volume 84, Mean Corpuscular Hemoglobin 26, Mean Corpuscular Hemoglobin Concent 32, Red Cell Distribution Width 14.2, Platelet Count 730H, Mean Platelet Volume 8.9L, Immature Granulocyte % (Auto) 1, Neutrophils (%) (Auto) 68, Lymphocytes (%) (Auto) 19, Monocytes (%) (Auto) 7, Eosinophils (%) (Auto) 4, Basophils (%) (Auto) 1, Neutrophils # (Auto) 5.0, Lymphocytes # (Auto) 1.4, Monocytes # (Auto) 0.5, Eosinophils # (Auto) 0.3, Basophils # (Auto) 0.1, Immature Granulocyte # (Auto) 0.1, Sodium Level 134L, Potassium Level 4.4, Chloride Level 102, Carbon Dioxide Level 23, Anion Gap 9, Blood Urea Nitrogen 13, Creatinine 0.75, Estimat Glomerular Filtration Rate 81, BUN/Creatinine Ratio 17, Glucose Level 78, Calcium Level 9.1, Corrected Calcium 10.1, Total Bilirubin 0.3, Aspartate Amino Transf (AST/SGOT) 7, Alanine Aminotransferase (ALT/SGPT) 9, Alkaline Phosphatase 210H, Total Protein 6.8, Albumin 2.8L Microbiology 12/30/22 Urine Culture - Final, Complete Escherichia coli Home Meds Active Cefdinir 300 Mg Capsule 300 Mg PO BID 4 Days Azithromycin 250 Mg Tablet 250 Mg PO DAILY@1800 2 Days Reported Cassie Allergy (Fexofenadine HCl) 180 Mg Tablet 180 Mg PO DAILY PRN Stool Softener (Docusate Sodium) 100 Mg Tablet 100 Mg PO DAILY PRN Tylenol Extra Strength (Acetaminophen) 500 Mg Tablet 1,000 Mg PO Q8H PRN TAKES 2 (500MG) TABS Levothyroxine (Levothyroxine Sodium) 50 Mcg Capsule 50 Mcg PO DAILY Aspirin 81 Mg Tab.chew 81 Mg PO DAILY Lisinopril 40 Mg Tablet 40 Mg PO DAILY Alendronate Sodium 70 Mg Tablet 70 Mg PO SUNDAY Albuterol Sulfate 2.5 Mg/3 Ml (0.083 %) Vial.neb 2.5 Mg NEB Q6H PRN Cyclobenzaprine HCl 5 Mg Tablet 10 Mg PO HS TAKES 2 (5MG) TABS Assessment/Pt DC Instructions Pneumonia, UTI Follow-up with Dr. Hollis within 7-14d after discharge. Will obtain repeat chest CT in 4 weeks for suspicious nodule found. Continue your antibiotics until they are done. Discharge Diet: No Restrictions Activity as Tolerated: Yes Discharge Physical Examination Allergies: Coded Allergies: No Known Drug Allergies (Unverified , 04/14/21) General Appearance: No Apparent Distress Respiratory: No Accessory Muscle Use, No Respiratory Distress, Wheezing Cardiovascular: Regular Rate, Rhythm Gastrointestinal: Non Tender, Soft Skin: Warm/Dry Neurologic/Psychiatric: Alert, Oriented x3, Normal Mood/Affect JONATHON SUTHERLAND MD 01/02/23 1714: Discharge Summary Discharge Physical Examination Allergies: Coded Allergies: No Known Drug Allergies (Unverified , 04/14/21) Supervisory-Addendum Brief Supervisory Addendum I personally performed the watters portions of the visit, discussed case with res ident and concur with resident documentation of history, physical exam, assessment and treatment plan unless otherwise noted. Will need f.u CT to check out lung nodule/mass in 4 weeks CARA TERRELL MD,RESIDENT Jan 02, 2023 08:08 JONATHON SUTHERLAND MD Jan 02, 2023 17:14
[2023-01-02] MEDS: DOCUSATE SODIUM 100 MG CAPSULE PO SCH (09:48)
[2023-01-02] MEDS: SENNOSIDES 8.6 MG TABLET PO SCH (09:48)
[2023-01-02] MEDS ORDERED: FERR1TAB21 PO (10:48)
[2023-01-02 11:23] VITALS: BP 172/82
[2023-01-02 12:50] VITALS: BP 172/82
--- NOTE | 2023-01-03 17:55 | Physician Query Clarification ---
PQ-Uncertain Diagnosis Admission/Discharge Admission Date: Dec 30, 2022 at 20:24 Discharge Date: Jan 02, 2023 at 12:50 The medical record reflects the following clinical scenario: History/Risk Factors: COPD Clinical Findings: Pneumonia, COPD Treatment: antibiotics, supplemental O2 Question: Is acute respiratory failure with hypoxia clinically valid diagnosis? acute respiratory failure with hypoxia was documented in the 01/01 progress note with no further documentation in the medical record. Please document a response in Progress Note or Discharge Summary. 1. Yes, clinically valid, condition resolved, present on admission. 2. No, condition ruled out. 3. Other, with explanation of clinical findings. 4. Undetermined, no explanation for clinical findings. In responding to this query, please exercise your independent professional judgment. The purpose of this communication is to more accurately reflect the complexity of your patients condition. The fact that a question is asked does not imply that any particular answer is desired or expected. Thank you for your timely response to this clarification. Requestors name: Jo Ann THIS PHYSICIAN QUERY FORM IS A PERMANENT PART OF THE MEDICAL RECORD JO ANN HERNANDEZ Jan 03, 2023 17:55
== END 2023-01-02 12:50 | disposition home or self-care (01) | DRG 871 ==
LOC: EDUNIT# 16:43 → ER 16:46 → 4TH 20:24
PROVIDERS: ADMIT Internal Medicine; ATTEND Family Medicine
DX: A41.51 Sepsis due to Escherichia coli [E. coli] (principal); J18.9 Pneumonia, unspecified organism; N39.0 Urinary tract infection, site not specified; J44.0 Chronic obstructive pulmonary disease with (acute) lower respiratory infection; Z68.1 Body mass index [BMI] 19.9 or less, adult; R63.4 Abnormal weight loss; D50.9 Iron deficiency anemia, unspecified; I10 Essential (primary) hypertension; Z85.3 Personal history of malignant neoplasm of breast; Z11.52 Encounter for screening for COVID-19; Z77.22 Contact with and (suspected) exposure to environmental tobacco smoke (acute) (chronic); R62.7 Adult failure to thrive; Z92.21 Personal history of antineoplastic chemotherapy; Z92.3 Personal history of irradiation; Z90.12 Acquired absence of left breast and nipple; R54 Age-related physical debility
CPT/HCPCS: 36415; 70450; 71046; 71275; 72125; 74177; 80053; 81000; 82150; 82550; 82553; 82728; 83540; 83550; 83690; 83735; 83874; 83880; 84443; 84484; 85007; 85025; 85027; 85610; 85652; 85730; 86141; 87077; 87088; 87186; 87636; 93005; 93041; 94640; 94664; 94760; 94761; 96361; 96365; 96367